=== PATIENT | female | born 1970 | race Caucasian/White ===

== ENCOUNTER 2025-06-13 19:21 | Emergency (ER) | payer MEDICAID, SELFPAY ==
[2025-06-13 19:24] VITALS: BP 159/111; PULSE 105; RESP 20; TEMP 36.6; O2SAT 97; BMI 39.7
[2025-06-13] MEDS: HYDROcodone Bitartrate/Apap 5/325 Tablet PO (19:42)
--- NOTE | 2025-06-13 19:44 | NURSING ---
Pt very upset, worried about adhd son at home. States she needs to get home to him so he does not freak out. I offered to call him, but he does not have a phone. SW in room and talking about options with pt.
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
--- NOTE | 2025-06-13 19:46 | RAD_ITS ---
PROCEDURE: FOREARM 2 VIEWS 06/13/2025 REASON FOR EXAM: INJURY TECHNIQUE: Left FOREARM 2 VIEWS COMPARISON: None FINDINGS: See below RAD/Forearm 2 Views IMPRESSION: There is a minimally displaced fracture through the distal shaft of the ulna, w ith minimal apex dorsal angulation. There is surrounding soft tissue swelling. Questionable fragmentation at the lunate may be artifactual. Consider dedicate d wrist radiographs. Reading Location: [facility]
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
--- OUTSIDE RECORDS SUMMARY | 2025-06-13 20:42 | XMS RPT_ITS | CCD ---
Author Organization [facility] Care Team Providers Care Nursing Technician Name Role Phone PHYSICIAN, NONE Primary Care Physician Unavailab norma Rao ECOMMERCE MARKETING SPECIALIST.Samantha MAHAN Primary Care Provider Maira ECOMMERCE MARKETING SPECIALIST.Samantha MAHAN Primary Care Provider BRENDON RAOE Khris Referring Unavailable MAIRA, SAMANTHA M Primary Care Unavailable MAIRA, SAMANTHA M Referring Unavailable MAIRA, SAMANTHA M Primary Care Unavailable MAIRA, SAMANTHA M Referring Unavailable MAIRA, SAMANTHA M Primary Care Unavailable MAIRA, SAMANTHA M Referring Unavailable MAIRA, SAMANTHA M Primary Care Unavailable AUDREY SANCHEZ Attending Unavailable MAIRA, SAMANTHA M Primary Care Unavailable MAIRA, SAMANTHA M Referring Unavailable MAIRA, SAMANTHA M Primary Care Unavailable AUDREY SANCHEZ Attending Unavailable MAIRA, SAMANTHA M Referring Unavailable MAIRA, SAMANTHA M Primary Care Unavailable MILY ERWIN Attending Unavailable MAIRA, SAMANTHA M Referring Unavailable MAIRA, SAMANTHA M Primary Care Unavailable SUJIT THOMASON Referring Unavailable MAIRA, SAMANTHA M Primary Care Unavailable Rajguru ECOMMERCE MARKETING SPECIALIST.Audrey MAHAN Unavailable Shree [employer]COMMERCE MARKETING SPECIALIST.Audrey MAHAN Unavailable Medications Current Medications Medication Drug Class(es) Dates Sig (Normalized) Sig (Original) atorvastatin 20 mg oral tablet (20 sources) HMG-CoA Reductase Inhibitor Start: 4 End: 4 take 1 tablet by mouth once daily at bedtime atorvastatin (LIPITOR) 20 mg tablet Indications: Mixed hyperlipidemia Take 1 tablet by mouth once daily. At bedtime 90 tablet 1 08/18/2024 Active Comment on above: Take 1 tablet by garland th once daily. At bedtime hydroCHLOROthiazide 12.5 mg / losartan potassium 50 mg oral tablet (20 sources) Thiazide Diuretic, Angiotensin 2 Receptor Laura Start: End: take 1 tablet by mouth once daily losartan-hydroCHLO ROthiazide (HYZAAR) 50-12.5 mg per tablet Indications: Essential hypertension, benign take 1 tablet by mouth once daily. 90 tablet 3 06/03/2024 Active Comment on above: Take 1 tablet by garland th once daily. naproxen 500 mg oral tablet (1 source) Nonsteroidal Anti-inflammatory Drug Start: End: naproxen 500 mg oral tablet Dose : 500 mg = 1 tab(s), Oral, BID, PRN Pain, X 10 day(s), # 20 tab(s), 0 Refill(s), 01/03/24 1:11:00 PM EST, Pharmacy: [facility] #[id number], 147.3, cm, 12/24/23 12:38:00 EST, Height, kg, 12/24/23 12:38:00 EST, Dosing Weight Start Date: 12/24/23 Stop Date: 01/03/24 Status: Ordered QUEtiapine 50 mg oral tablet (14 sources) Atypical Antipsychotic Start: End: take 1 tablet by mouth once daily at bedtime QUEtiapine (SEROQUEL) 50 mg tablet Take 1 tablet by mouth daily at bedtime. 30 tablet 1 07/11/2024 Active Start: 05-13-2024 End: 07-12-2024 take 1 tablet by mouth once daily at bedtime QUEtiapine (SEROQUEL) 25 mg tablet Take 1 tablet by mouth daily at bedtime. 30 tablet 1 05/13/2024 07/11/2024 Discontinued sertraline 100 mg oral tablet (20 sources) Serotonin Reuptake Inhibitor Start: 07-11-2024 End: 09-09-2024 take 2 tablets by mouth once daily sertraline (ZOLOFT) 100 mg tablet Take 2 tablets by mouth once daily. 60 tablet 1 07/11/2024 Active Start: 05-13-2024 End: 08-17-2024 take 1.5 tablets by mouth once daily sertraline (ZOLOFT) 100 mg tablet Take 1.5 tablets by mouth once daily. 45 tablet 1 05/13/2024 07/11/2024 Discontinued Start: 02-06-2024 End: 05-13-2024 take 1 tablet by mouth once daily sertraline (ZOLOFT) 100 mg tablet Indications: Depression, unspecified depression type , Anxiety Take 1 tablet by mouth once daily. 90 tablet 1 02/06/2024 05/13/2024 Discontinued Start: 12-25-2023 End: 02-06-2024 take 1 tablet by mouth once daily sertraline (ZOLOFT) 50 mg tablet Indications: Depression, unspecified depression type , Anxiety Take 1 tablet by mouth once daily. 30 tablet 2 12/25/2023 02/06/2024 Discontinued Comment on above: Take 1 tablet by garland th once daily. Completed/Discontinued Medications Medication Drug Class(es) Dates Sig (Normalized) Sig (Original) amoxicillin 875 mg / clavulanate 125 mg oral tablet (5 sources) Penicillin-class Antibacterial Start: 12-24-2023 End: 02-06-2024 amoxicillin-clavu lanate potassium (AUGMENTIN) 875-125 mg per tablet Start: 12-24-2023 End: 01-03-2024 take 1 tablet by mouth every twelve hours amoxicillin-clavulanate 875 mg-125 mg or al tablet 1 tab(s), Oral, q12h, X 10 day(s), # 20 tab(s), 0 Refill(s), 01/03/24 1:11:00 PM EST, Pharmacy: [facility] #30, 147.3, cm, 12/24/23 12:38:00 EST, Height, 100, kg, 12/24/23 12:38:00 EST, Dosing Weight Start Date: 12/24/23 Stop Date: 01/03/24 Status: Ordered iv contrast (will be provided with radiology test) (1 source) Start: 05-22-2024 End: 05-23-2024 inject 1 dose intravenously once iv contrast (will be provided with radiology test) Indications: Cataplexy , Dysphasia MRI Brain Inject, intravenously, once for 1 dose.No IV access, insert saline lock prior to beginning of sedation, infusion, injection of imaging exam.Discontinue saline lock post exam. If Pt. has a central line or IVAD, may access for administration according to line specific nursing protocol.Once exam is complete flush line and de-access according to line specific nursing protocol in the MR contrast administration guidelines link 1 Each 0 05/22/2024 05/23/2024 lisinopril 20 mg oral tablet (1 source) Angiotensin Converting Enzyme Inhibitor Start: 12-25-2023 End: 01-08-2024 take 1 tablet by mouth once daily lisinopril (ZESTRIL) 20 mg tablet Indications: Essential hypertension, benign Take 1 tablet by mouth once daily. 30 tablet 2 12/25/2023 01/08/2024 Discontinued Comment on above: Take 1 tablet by mouth once daily. losartan potassium 50 mg oral tablet (5 sources) Angiotensin 2 Receptor Laura Start: 01-08-2024 End: 02-07-2024 take 1 tablet by mouth twice daily losartan (COZAAR) 50 mg tablet Indications: Essential hypertension, benign Take 1 tablet by mouth two times a day. 30 tablet 2 01/08/2024 02/07/2024 Discontinued Comment on above: Take 1 tablet by mouth two times a day. Problems Active Problems Problem Classification Problem Date Documented Da te Episodic/Chronic Adjustment disorders (20 sources) Adjustment disorder with depressed mood; Translations: [Adjustment disorder with depressed mood] Onset: 01-24-2007 01-24-2007 Chronic Anxiety disorders (20 sources) Anxiety; Translations: [Anxiety disorder, unspecified] Onset: 03-22-2012 03-22-2012 Chronic Coma; stupor; and brain damage (1 source) Daytime somnolence; Translations: [Somnolence] 05-22-2024 Episodic Disorders of lipid metabolism (2 sources) Mixed hyperlipidemia; Translations: [Mixed hyperlipidemia] 02-07-2024 Chronic Essential hypertension (20 sources) Benign essential hypertension; Translations: [Essential (primary) hypertension] Onset: 04-09-2012 01-08-2024 Chronic Mood disorders (20 sources) Depressive disorder; Translations: [Depression] Onset: 12-25-2023 12-25-2023 Chronic Mood disorders (1 source) Mood disorders; Translations: [Depression, unspecified depression type] Onset: 12-25-2023 Other connective tissue disease (1 source) Muscle weakness; Translations: [Muscle weakness (generalized)] 05-22-2024 Episodic Other nervous system disorders (20 sources) Carpal tunnel syndrome of right wrist; Translations: [Carpal tunnel syndrome, right upper limb] Onset: 03-07-2024 03-07-2024 Chronic Other nervous system disorders (2 sources) Cataplexy; Translations: [Narcolepsy with cataplexy] 05-22-2024 Chronic Other nervous system disorders (2 sources) Dysphasia; Translations: [Dysphasia] 05-22-2024 Episodic Other screening for suspected conditions (not mental disorders or infectious disease) (14 sources) Patient encounter status; Translations: [Encounter for screening mammogram for malignant neoplasm of breast] Onset: 01-24-2024 03-06-2024 Episodic Otitis media and related conditions (1 source) Otitis media; Translations: [Otitis media, unspecified, right ear] Onset: 12-24-2023 Episodic Residual codes; unclassified (2 sources) Nicotine user; Translations: [Tobacco use] 05-13-2024 Episodic Substance-related disorders (2 sources) Marijuana user; Translations: [Cannabis use, unspecified, uncomplicated] 05-13-2024 Episodic Unclassified (2 sources) APPOINTMENT CANCELLED 03-11-2024 Past or Other Problems Problem Classification Problem Date Documented Da te Episodic/Chronic Cancer of cervix (16 sources) Atypical squamous cells of undetermined significance on cervical Papanicolaou smear; Translations: [Atypical squamous cells of undetermined significance on cytologic smear of cervix (ASC-US)] Onset: 04-17-2024 04-17-2024 Episodic Cardiac dysrhythmias (2 sources) Palpitations; Translations: [Palpitations] Onset: 02-25-2024 02-25-2024 Episodic Other connective tissue disease (20 sources) Pain in right hand; Translations: [Pain in right hand] Onset: 03-07-2024 03-04-2024 Episodic Other connective tissue disease (20 sources) Ganglion cyst of the right volar wrist; Translations: [Ganglion, right wrist] Onset: 03-07-2024 03-07-2024 Episodic Other connective tissue disease (1 source) Pain in right hand; Translations: [Right hand pain] Onset: 03-06-2024 Episodic Superficial injury; contusion (20 sources) Contusion of upper limb; Translations: [Contusion of unspecified upper arm, initial encounter] Onset: 10-22-2015 10-22-2015 Episodic Unclassified (1 source) Patient encounter status 04-24-2025 Results Test Name Value Interpretation Reference Range Keri Penaloza 10-06-2024 [place] Telephone (AGINTMLW) ZOFIA RAGLAND ([id number]) 1970 F Date Time Provider Department 10/06/24 SAMANTHA RAO AGINTMLW During your visit today, we recorded the following information about you: Samantha Rao, ECOMMERCE MARKETING SPECIALIST.VENDING MACHINE COLLECTOR 10/06/2024 6:59 AM Signed Please let pt know we received her disability paperwork. She will need to go to [facility] for disability evaluation for one portion of this and the other is psychological which will have to be completed by her psych r. Please forward these papers. Please give her number to [facility]. Mariella Sommers LPN 10/08/2024 4:43 PM Signed Call placed to pt, advised of the information in this note. Pt verbalized an understanding. JEFERSON Lee Brenda, LPN 10/09/2024 9:30 AM Signed Disability paperwork faxed to [facility] at [phone] and to Audrey Silva (psych) at [phone]. Fax confirmation received for both faxes. Mariella Sommers LPN Allergies As of Date: 10/06/2024 (No Known Allergies) Date Reviewed: 07/11/2024 Reviewed by: Carisa Wells MA - Fully Assessed Primary Visit Diagnosis:Disability examination [Z02.71] Order(s):CONSULT TO PHYSICAL THERAPY [9032] Order #: [id number]: 1 FUTURE Prescriptions as of 10/09/2024 - atorvastatin (LIPITOR) 20 mg tablet Take 1 tablet by mouth once daily. At bedtime - QUEtiapine (SEROQUEL) 50 mg tablet Take 1 tablet by mouth daily at bedtime. - sertraline (ZOLOFT) 100 mg tablet Take 2 tablets by mouth once daily. - losartan-hydroCHLOROt hiazide (HYZAAR) 50-12.5 mg per tablet take 1 tablet by mouth once daily. Problem List As Of Date 10/06/2024 Noted Resolved ADJUSTMENT DISORDER WITH DEPRESSED MOOD [F43.21]01/24/2007 Anxiety [F41.9] 03/22/2012 Essential hypertension, benign [I10] 04/09/2012 Arm contusion [S40.029A] 10/22/2015 Foreign body in forearm [S50.859A] 11/02/2015 Depression [F32.A] 12/25/2023 Right hand pain [M79.641] 03/07/2024 Ganglion cyst of volar aspect of right wrist [M*03/07/2024 Right carpal tunnel syndrome [G56.01] 03/07/2024 Atypical squamous cells of undetermined signifi*04/17/2024 Encounter Status:Closed by MARIELLA SOMMERS on 10/08/24 Normal [facility] CNCOon 09-24-2024 CNCO Letter Text Normal [facility] CNPNon 09-24-2024 CNPN Telephone (AGPSYACC) ZOFIA RAGLAND ([id number]) 1970 F Date Time Provider Department 09/24/24 TASNEEM MCHUGH During your visit today, we recorded the following information about you: Jane Livingston 09/24/2024 11:33 AM Signed No Shows: 03/19/24 at 10:30 am 05/28/24 at 10:30 am 07/30/24 at 9:30 am 09/24/24 at 10:30 am No Show Documentation Zofia Ragland no showed for an appointment on 09/24/24 with Tasneem Mchugh PSYD at 10:30 am. She was scheduled for follow up appointment. I called and did not speak with the patient regarding her missed appointment, but left voicemail. Zofia stated the reason that she missed her appointment was because N/A . Resources discussed/offered to patient: N/A No show determined to be fault of patient: Yes This is the patients fourth no show in the last 12 months. Patient was rescheduled for N/A. Letter mailed : Yes Is this the Third or Fourth No Show? Yes. Was the property claims manager/coordinator contacted? Yes Jane Livingston September 24, 2024 11:26 AM Allergies As of Date: 09/24/2024 (No Known Allergies) Date Reviewed: 07/11/2024 Reviewed by: Carisa Wells MA - Fully Assessed Reason for Visit: Appointment [186] Cmt: #4 No Show Prescriptions as of 09/24/2024 - atorvastatin (LIPITOR) 20 mg tablet Take 1 tablet by mouth once daily. At bedtime - QUEtiapine (SEROQUEL) 50 mg tablet Take 1 tablet by mouth daily at bedtime. - sertraline (ZOLOFT) 100 mg tablet Take 2 tablets by mouth once daily. - losartan-hydroCHLOROt hiazide (HYZAAR) 50-12.5 mg per tablet take 1 tablet by mouth once daily. Problem List As Of Date 09/24/2024 Noted Resolved ADJUSTMENT DISORDER WITH DEPRESSED MOOD [F43.21]01/24/2007 Anxiety [F41.9] 03/22/2012 Essential hypertension, benign [I10] 04/09/2012 Arm contusion [S40.029A] 10/22/2015 Foreign body in forearm [S50.859A] 11/02/2015 Depression [F32.A] 12/25/2023 Right hand pain [M79.641] 03/07/2024 Ganglion cyst of volar aspect of right wrist [M*03/07/2024 Right carpal tunnel syndrome [G56.01] 03/07/2024 Atypical squamous cells of undetermined signifi*04/17/2024 Encounter Status:Closed by JANE LIVINGSTON on 09/24/24 [facility] 09-10-2024 CNPN Telephone (AGPSYACC) ZOFIA RAGLAND ([id number]) 1970 F Date Time Provider Department 09/10/24 TASNEEM MCHUGH AGPSYACC During your visit today, we recorded the following information about you: Lio Jane 09/10/2024 8:55 AM Signed Appointment at 1:30 pm today and did she want to schedule Jane Livingston September 10, 2024 8:54 AM Allergies As of Date: 09/10/2024 (No Known Allergies) Date Reviewed: 07/11/2024 Reviewed by: Carisa Wells MA - Fully Assessed Reason for Visit: Appointment [186] Cmt: Appointment available at 1:30 pm today and did she want to schedule Prescriptions as of 09/10/2024 - atorvastatin (LIPITOR) 20 mg tablet Take 1 tablet by mouth once daily. At bedtime - QUEtiapine (SEROQUEL) 50 mg tablet Take 1 tablet by mouth daily at bedtime. - sertraline (ZOLOFT) 100 mg tablet Take 2 tablets by mouth once daily. - losartan-hydroCHLOROt hiazide (HYZAAR) 50-12.5 mg per tablet take 1 tablet by mouth once daily. Problem List As Of Date 09/10/2024 Noted Resolved ADJUSTMENT DISORDER WITH DEPRESSED MOOD [F43.21]01/24/2007 Anxiety [F41.9] 03/22/2012 Essential hypertension, benign [I10] 04/09/2012 Arm contusion [S40.029A] 10/22/2015 Foreign body in forearm [S50.859A] 11/02/2015 Depression [F32.A] 12/25/2023 Right hand pain [M79.641] 03/07/2024 Ganglion cyst of volar aspect of right wrist [M*03/07/2024 Right carpal tunnel syndrome [G56.01] 03/07/2024 Atypical squamous cells of undetermined signifi*04/17/2024 Encounter Status:Closed by JANE LIVINGSTON on 09/10/24 [facility] CNOVon 09-09-2024 CNOV Office Visit (PSWSTR ) ZOFIA RAGLAND ([id number]) 1970 F Date Time Provider Department 09/09/24 8:00 AM AUDREY SANCHEZ PSWSTR During your visit today, we recorded the following information about you: Audrey Sanchez, ECOMMERCE MARKETING SPECIALIST.VENDING MACHINE COLLECTOR 09/09/2024 9:48 AM Signed Patient was not able to attend the appointment this morning as she had to go to urgent care due to chest pain. Referring Provider: AUDREY SANCHEZ [[id number]] Allergies As of Date: 09/09/2024 (No Known Allergies) Date Reviewed: 07/11/2024 Reviewed by: Carisa Wells MA - Fully Assessed Reason for Visit: Appointment Cancelled [1023] Primary Visit Diagnosis:APPOINTMENT CANCELLED Prescriptions as of 09/09/2024 - atorvastatin (LIPITOR) 20 mg tablet Take 1 tablet by mouth once daily. At bedtime - QUEtiapine (SEROQUEL) 50 mg tablet Take 1 tablet by mouth daily at bedtime. - sertraline (ZOLOFT) 100 mg tablet Take 2 tablets by mouth once daily. - losartan-hydroCHLOROt hiazide (HYZAAR) 50-12.5 mg per tablet take 1 tablet by mouth once daily. Problem List As Of Date 09/09/2024 Noted Resolved ADJUSTMENT DISORDER WITH DEPRESSED MOOD [F43.21]01/24/2007 Anxiety [F41.9] 03/22/2012 Essential hypertension, benign [I10] 04/09/2012 Arm contusion [S40.029A] 10/22/2015 Foreign body in forearm [S50.859A] 11/02/2015 Depression [F32.A] 12/25/2023 Right hand pain [M79.641] 03/07/2024 Ganglion cyst of volar aspect of right wrist [M*03/07/2024 Right carpal tunnel syndrome [G56.01] 03/07/2024 Atypical squamous cells of undetermined signifi*04/17/2024 Encounter Status:Closed by AUDREY SANCHEZ on 09/09/24 [facility] CNPLaura 08-20-2024 CNPN Telephone (AGPSYACC) ZOFIA RAGLAND ([id number]) 1970 Date Time Provider Department 08/20/24 TASNEEM MCHUGH AGPSYACC During your visit today, we recorded the following information about you: Jane Livingston 08/20/2024 1:27 PM Signed Called to schedule follow up appointmentlisette August 20, 2024 1:27 PM Allergies As of Date: 08/20/2024 (No Known Allergies) Date Reviewed: 07/11/2024 Reviewed by: Carisa Wells MA - Fully Assessed Reason for Visit: Appointment [186] Cmt: Called to schedule follow up appointment, lisette Prescriptions as of 08/20/2024 - atorvastatin (LIPITOR) 20 mg tablet Take 1 tablet by mouth once daily. At bedtime - QUEtiapine (SEROQUEL) 50 mg tablet Take 1 tablet by mouth daily at bedtime. - sertraline (ZOLOFT) 100 mg tablet Take 2 tablets by mouth once daily. - losartan-hydroCHLOROt hiazide (HYZAAR) 50-12.5 mg per tablet take 1 tablet by mouth once daily. Problem List As Of Date 08/20/2024 Noted Resolved ADJUSTMENT DISORDER WITH DEPRESSED MOOD [F43.21]01/24/2007 Anxiety [F41.9] 03/22/2012 Essential hypertension, benign [I10] 04/09/2012 Arm contusion [S40.029A] 10/22/2015 Foreign body in forearm [S50.859A] 11/02/2015 Depression [F32.A] 12/25/2023 Right hand pain [M79.641] 03/07/2024 Ganglion cyst of volar aspect of right wrist [M*03/07/2024 Right carpal tunnel syndrome [G56.01] 03/07/2024 Atypical squamous cells of undetermined signifi*04/17/2024 Encounter Status:Closed by JANE LIVINGSTON on 08/20/24 [facility] 08-05-2024 ASHLEY Telephone (BRADEN) ZOFIA RAGLAND ([id number]) 1970 F Date Time Provider Department 08/05/24 SAMANTHA RAO During your visit today, we recorded the following information about you: Poppy Caballero 08/05/2024 4:20 PM Signed Denial Type: Payer Clinical Guidelines Not Met Denial Rationale: Based on what was given, you have a problem, your doctor's request cannot be approved. A person might need a(n) Brain MRI (with or without Internal Auditory Canal views) if these notes have/has been given: doctor's notes that say why this test is needed. The doctor's notes should say how this test will change your treatment. The information we got did not include these notes. Is Peer to Peer Available? YES Peer to Peer Deadline: Must be completed by: 08/07/2024 Insurance Case# [id number] Peer to Peer opt 2 (enter tracking#) / opt 1 Note: peer to peer can not be scheduled. Denial sent to providers email. Samantha Rao APRN.VENDING MACHINE COLLECTOR 08/06/2024 4:50 PM Signed Pt to be notified of deny. Pt had normal neuro and PE exam. I would recommend she follow up with sleep medicine as referred and would recommend she see neurology for further evaluation of her symptoms. They can order testing if they feel is necessary. Gay He MA 08/08/2024 11:53 AM Addendum Patient informed and states that she cannot drive to [place] for the sleep medicine specialist because she cannot drive long distances and she does not have anyone to drive her. States her medications are not working and they will not let her schedule with Dr. Mchugh here at our office, is very upset stating it is our front office staffs fault because they told her she missed appointments and did not have appointments when she knew she did. States they refused to schedule her. Patient is very upset and said nobody can help her and hung up. Please advise. CONNIE Crews Charlene M, APRN.VENDING MACHINE COLLECTOR 08/10/2024 10:18 PM Signed Unfortunately due to her symptoms she needs to see specialists. Which includes neurologist and sleep medicine. I believe her insurance should provide transportation for her to doctor appts. This way she can schedule these. Mariella Sommers LPN 08/20/2024 3:09 PM Signed Left message for pt to call office. Mariella Sommers LPN Allergies As of Date: 08/05/2024 (No Known Allergies) Date Reviewed: 07/11/2024 Reviewed by: Carisa Wells MA - Fully Assessed Reason for Visit: Denial: 80410 MRI BRAIN WO/W IVCON [Other] Primary Visit Diagnosis:Cataplexy [G47.411] Other Visit Diagnosis:Dysphasia [R47.02] Order(s):CONSULT TO NEUROLOGY [9019] Order #: [id number]: 1 FUTURE Prescriptions as of 08/20/2024 - atorvastatin (LIPITOR) 20 mg tablet Take 1 tablet by mouth once daily. At bedtime - QUEtiapine (SEROQUEL) 50 mg tablet Take 1 tablet by mouth daily at bedtime. - sertraline (ZOLOFT) 100 mg tablet Take 2 tablets by mouth once daily. - losartan-hydroCHLOROt hiazide (HYZAAR) 50-12.5 mg per tablet take 1 tablet by mouth once daily. Problem List As Of Date 08/05/2024 Noted Resolved ADJUSTMENT DISORDER WITH DEPRESSED MOOD [F43.21]01/24/2007 Anxiety [F41.9] 03/22/2012 Essential hypertension, benign [I10] 04/09/2012 Arm contusion [S40.029A] 10/22/2015 Foreign body in forearm [S50.859A] 11/02/2015 Depression [F32.A] 12/25/2023 Right hand pain [M79.641] 03/07/2024 Ganglion cyst of volar aspect of right wrist [M*03/07/2024 Right carpal tunnel syndrome [G56.01] 03/07/2024 Atypical squamous cells of undetermined signifi*04/17/2024 Encounter Status:Closed by MARIELLA SOMMERS on 08/20/24 [facility] CNCOon 07-30-2024 CNCO Letter Text [facility] CNPNon 07-30-2024 CNPN Telephone (AGPSYACC) ZOFIA RAGLAND ([id number]) 1970 F Date Time Provider Department 07/30/24 TASNEEM MCHUGH AGPSYACC During your visit today, we recorded the following information about you: Tejas Theo 07/30/2024 3:14 PM Signed Called patient regarding her frequent no shows and explained the [facility] No Show policy. Patient said she did not miss all of them. She said some of them she called to cancel. I did explain that we have to be called at least 24 hours if at all possible in the future before cancelling or missing an appointment. I told Zofia to try to set up MyChart on her phone and that it could help her remember her appointments. Zofia said she has had trouble with her phone. I also gave her the main phone number to reach Dr. Mchugh's medical unit secretary to schedule or confirm her appointments. [phone]. Allergies As of Date: 07/30/2024 (No Known Allergies) Date Reviewed: 07/11/2024 Reviewed by: Carisa Wells MA - Fully Assessed Reason for Visit: Appointment [186] Prescriptions as of 07/30/2024 - QUEtiapine (SEROQUEL) 50 mg tablet Take 1 tablet by mouth daily at bedtime. - sertraline (ZOLOFT) 100 mg tablet Take 2 tablets by mouth once daily. - losartan-hydroCHLOROt hiazide (HYZAAR) 50-12.5 mg per tablet take 1 tablet by mouth once daily. - atorvastatin (LIPITOR) 20 mg tablet Take 1 tablet by mouth once daily. At bedtime Problem List As Of Date 07/30/2024 Noted Resolved ADJUSTMENT DISORDER WITH DEPRESSED MOOD [F43.21]01/24/2007 Anxiety [F41.9] 03/22/2012 Essential hypertension, benign [I10] 04/09/2012 Arm contusion [S40.029A] 10/22/2015 Foreign body in forearm [S50.859A] 11/02/2015 Depression [F32.A] 12/25/2023 Right hand pain [M79.641] 03/07/2024 Ganglion cyst of volar aspect of right wrist [M*03/07/2024 Right carpal tunnel syndrome [G56.01] 03/07/2024 Atypical squamous cells of undetermined signifi*04/17/2024 Encounter Status:Closed by THEO LAZARO on 07/30/24 [facility] CNOVyasmin 07-11-2024 CNOV Office Visit (PSWSTR ) ZOFIA RAGLAND ([id number]) 1970 F Date Time Provider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 [facility] Address: [address] [place] [address] Performed By: #### L [id number] ####[facility] LABORATORYCLIA [id number] [place] [id number] [facility] LABCLIA [id number] [place] [address] [place]#### HPVHRT ####[facility] LABCLIA [id number] [place] [address] [place] INTERPRETATION, CYTOLOGY, DESIGN AGENT Abnormal [facility] Comment on above: Order Comment: Speci men Type: FLUID SPECIMENOrdering Facility: [facility] Address: [address] [place] [address] Result Comment: Epit helial cell abnormality. Atypical squamous cells of undetermined significance (ASC-US). Performed By: #### L [id number] ####[facility] LABORATORYCLIA [id number] [place] [address] [place] [facility] LABCLIA [id number] [place] [id number] [place]#### HPVHRT ####[facility] LABCLIA [id number] [place] [id number] [place] LMP 12/27/2023 Normal [facility] Comment on above: Order Comment: Speci men Type: FLUID SPECIMENOrdering Facility: [facility] Address: [address] [place] [address] Performed By: #### L [id number] ####CARIE LABORATORYCLIA [id number] [place] [address] [place] [facility] LABCLIA [id number] [place] [address] [place]#### HPVHRT ####[facility] LABCLIA [id number] [place] [address] [place] PAP DISCLAIMER COMMENT The Pap Smear is a screening test for cervical cancer. False negative results occur with all screening tests, emphasizing the need for rescreening at recommended intervals, and clinical correlation. Normal [facility] Comment on above: Order Comment: Speci men Type: FLUID SPECIMENOrdering Facility: [facility] Address: [address] [place] [address] Performed By: #### L [id number] ####CARIE LABORATORYCLIA [id number] [place] [address] [place] [facility] LABCLIA [id number] [place] [address] [place]#### HPVHRT ####[facility] LABCLIA [id number] [place] [id number] [place] PAP GENERAL CATEGORIZATION Epithelial Cell Abnormality Normal [facility] Comment on above: Order Comment: Speci men Type: FLUID SPECIMENOrdering Facility: [facility] Address: [address] [place], [place] [address] Performed By: #### L [id number] ####[facility] LABORATORYCLIA [id number] [place] [address] [facility] LABCLIA [id number] [place] [address] [place]#### HPVHRT ####[facility] LABCLIA [id number] [place] [address] [place] PAP HEALTH CARE MANAGER COMMENT This specimen has been analyzed by the ThinPrep Imaging System, an automated imaging and review system, which assists the laboratory in evaluating cells on ThinPrep Pap tests. Following automated imaging, selected lindsay from every slide are reviewed by a coke crusher operator. Normal [facility] Comment on above: Order Comment: Speci men Type: FLUID SPECIMENOrdering Facility: [facility] Address: [address] [place] [address] Performed By: #### L [id number] ####[facility]IE LABORATORYCLIA [id number] [address] LABCLIA [id number] [place] [address] [place]#### HPVHRT ####[facility] LABIA [id number] [place] [address] [place] TRICHOMONAS VAGINALIS NAATon 03-27-2024 T. vaginalis DNA GAYE+probe Ql (Unsp spec) Negative Normal Negative for Trichomonas vaginalis by amplification [facility] Comment on above: Order Comment: Speci men Type: SWABOrdering Facility: [facility] Address: [address] [place] [address] Performed By: #### T RVAMP, 45635-4 ####[facility] LABIA [id number] [place] [address] [place] CNOVon 03-11-2024 CNOV Office Visit (PSWSTR ) ZOFIA RAGLAND ([id number]) 1970 F Date Time Provider Department 03/11/24 11:00 AM AUDREY SANCHEZ PSWSTR During your visit today, we recorded the following information about you: Audrey Sanchez APRN.CNP 03/11/2024 6:59 PM Signed Patient request to reschedule the appointment right before the appointment time due to transportation issues. Was assisted in rescheduling. Referring Provider: SAMANTHA RAO [[id number]] Allergies As of Date: 03/11/2024 (No Known Allergies) Date Reviewed: 12/25/2023 Reviewed by: Samantha Rao APRN.VENDING MACHINE COLLECTOR - Fully Assessed Reason for Visit: Appointment Rescheduled [1024] Primary Visit Diagnosis:APPOINTMENT CANCELLED Prescriptions as of 03/11/2024 - losartan-hydroCHLOROt hiazide (HYZAAR) 50-12.5 mg per tablet Take 1 tablet by mouth once daily. - sertraline (ZOLOFT) 100 mg tablet Take 1 tablet by mouth once daily. - atorvastatin (LIPITOR) 20 mg tablet Take 1 tablet by mouth once daily. At bedtime Problem List As Of Date 03/11/2024 Noted Resolved ADJUSTMENT DISORDER WITH DEPRESSED MOOD [F43.21]01/24/2007 Anxiety [F41.9] 03/22/2012 Essential hypertension, benign [I10] 04/09/2012 Arm contusion [S40.029A] 10/22/2015 Foreign body in forearm [S50.859A] 11/02/2015 Depression [F32.A] 12/25/2023 Right hand pain [M79.641] 03/07/2024 Ganglion cyst of volar aspect of right wrist [M*03/07/2024 Right carpal tunnel syndrome [G56.01] 03/07/2024 Encounter Status:Closed by AUDREY SANCHEZ on 03/11/24 [facility] 03-07-2024 CNCO HNO ID: [id number] Author: COORDINATOR, MAMMOGRAPHY, ? Service: ? Author Type: Physician Type: Letter Filed: 03/07/2024 10:18 Note Text: March 07, 2024 PID: [id number] Zofia Ragland [address] [place] [address] Dear Ms. Ragland, We are pleased to inform you that the results of your recent breast imaging exam on 03/06/2024 are normal. Early detection of cancer is very important. We also understand recommendations regarding breast cancer screening are controversial. Please discuss with your primary care provider which strategy is best for you and whether a mammogram is right for you. Your imaging studies and report will be kept on file at [facility] as part of your permanent medical record and are available for your continuing care. Thank you for allowing us to help in meeting your health care needs. Sincerely, Dr. Perez Interpreting Radiologist (Normal over 40) Normal [facility] SCREENINGon 03-06-2024 [facility] SCREENING * * *Final Report* * * DATE OF EXAM: Mar 06 2024 12:06PM [facility]81 - [facility] SCREENING / PROCEDURE REASON: Encounter for screening mammogram for malignant neoplasm of breast * * * * Physician Interpretation * * * * RESULT: #[id number] - [facility] SCREENING BILATERAL DIGITAL SCREENING MAMMOGRAM WITH CAD: 03/06/2024 HISTORY: Priors done here 2013 /Screening Mammogram - patient reports NO breast symptoms /priors available for comparison Encounter For Screening Mammogram For Malignant Neoplasm Of Breast. RESULT: TECHNIQUE: The study was acquired using full field digital technology and interpreted from soft copy. Current study was also evaluated with a Computer Aided Detection (CAD). Comparison is made to exam dated: 03/17/2014 mammogram - [facility]. The breasts are almost entirely fatty. No significant masses, calcifications, or other findings are seen in either breast. There has been no significant interval change. IMPRESSION: NEGATIVE There is no mammographic evidence of malignancy. A 1 year screening mammogram is recommended. Bing Perez M.D. ns/penrad:03/07/2024 10:18:23 Edge Worker(s): RT Karri(R)(M), letter sent: Normal over 40 Mammogram BI-RADS: 1 Negative Multiple national specialty organizations have released breast cancer screening guidelines for women at average risk for developing breast cancer - guidelines that are based on both evidence and opinion, yet differ on when to start and how often to screen for breast cancer. With representation from Breast Imaging, Internal Medicine, Women's Health, Family Medicine, and Medical/Surgical Oncology, the [facility] has carefully reviewed the data and reached the following consensus: 1) All women should engage in shared decision-making with their providers to decide when to start and how often to screen; 2) All women should have the opportunity to start screening mammography at age 40; 3) For women ages 45-55, we recommend annual screening mammograms; 4) For women ages 55 and over, we support both the transition from an annual to a biennial interval if this aligns more with patient's values and preferences, or continuation with annual screening; 5) All women should discuss with their providers when to stop screening mammograms. Bellhop Service Captain: Dee Dee Transcribe Date/Time: Mar 06 2024 10:55A Dictated by: BING PEREZ MD This examination was interpreted and the report reviewed and electronically signed by: BING PEREZ MD on Mar 07 2024 10:18AM EST [id number] Normal [facility] XR HAND 3V PA/LAT/OBL RTon 0 03-06-2024 XR HAND 3V PA/LAT/OBL RT * * *Final Report* * * DATE OF EXAM: Mar 06 2024 11:19AM [id number] - XR HAND 3V PA/LAT/OBL RT / PROCEDURE REASON: Right hand pain * * * * Physician Interpretation * * * * EXAMINATION: XR HAND 3V PA/LAT/OBL RT CLINICAL HISTORY: Right hand pain Technique: XR HAND 3V PA/LAT/OBL RT -- RIGHT with 3 views on 3 images Comparison: None RESULT: No acute fracture or dislocation. Joint spaces are maintained. IMPRESSION: No acute osseous abnormality Bellhop Service Captain: LORIN Transcribe Date/Time: Mar 10 2024 4:00P Dictated by : KARIE RAMSEY MD This examination was interpreted and the report reviewed and electronically signed by: KARIE RAMSEY MD on Mar 10 2024 4:01PM EST [id number] N Normal [facility] CNNURSEon 02-25-2024 [facility] Nurse Visit (FAMPWS) ZOFIA RAGLAND ([id number]) 1970 F Date Time Provider Department 02/25/24 10:00 AM [facility] During your visit today, we recorded the following information about you: Karie Horn LPN 02/25/2024 9:59 AM Signed Patient presents for EKG per Samantha Rao CNP. Denies any problems at this time. Tolerated procedure well. Karie Horn LPN Referring Provider: SAMANTHA RAO [[id number]] Allergies As of Date: 02/25/2024 (No Known Allergies) Date Reviewed: 12/25/2023 Reviewed by: Samantha Rao APRN.VENDING MACHINE COLLECTOR - Fully Assessed Reason for Visit: EKG [793] Visit Diagnoses:Essential hypertension, benign [I10] Palpitations [R00.2] Order(s):ECG COMPLETE [ECG01] Order #: [id number] Prescriptions as of 02/25/2024 - losartan-hydroCHLOROt hiazide (HYZAAR) 50-12.5 mg per tablet Take 1 tablet by mouth once daily. - sertraline (ZOLOFT) 100 mg tablet Take 1 tablet by mouth once daily. - atorvastatin (LIPITOR) 20 mg tablet Take 1 tablet by mouth once daily. At bedtime Problem List As Of Date 02/25/2024 Noted Resolved ADJUSTMENT DISORDER WITH DEPRESSED MOOD [F43.21]01/24/2007 Anxiety [F41.9] 03/22/2012 Essential hypertension, benign [I10] 04/09/2012 Arm contusion [S40.029A] 10/22/2015 Foreign body in forearm [S50.859A] 11/02/2015 Depression [F32.A] 12/25/2023 Encounter Status:Closed by KARIE HORN on 02/25/24 Normal [facility] ECG COMPLETEon 02-25-2024 ECG COMPLETE Ventricular Rate : 9 1 BPM Atrial Rate : 91 BPM P-R Interval : 114 ms QRS Duration : 82 ms Q-T Interval : 370 ms QTC Calculation(Bazett) : 455 ms Calculated P Kanona : 49 degrees Calculated R Kanona : 80 degrees Calculated T Kanona : 4 degrees SINUS RHYTHM WITH OCCASIONAL PREMATURE VENTRICULAR COMPLEXES OTHERWISE NORMAL ECG Confirmed by OLIMPIA EASTON D.O. ([id number]) on 02/29/2024 9:49:22 AM NAME : ZOFIA RAGLAND PID : [id number] : 1970 Gender : Female Race : ORD : [id number] Procedure Date : Feb 25 2024 10:09:20 Edit Date : Feb 29 2024 09:49:25 Diagnosis: SINUS RHYTHM WITH OCCASIONAL PREMATURE VENTRICULAR COMPLEXES OTHERWISE NORMAL ECG Confirmed by OLIMPIA EASTON D.O. ([id number]) on 02/29/2024 9:49:22 AM Test Reason : Location : 185 : [facility] Overread By : OLIMPIA EASTON D.O. Edited By : OLIMPIA EASTON D.O. Referred By : SAMANTHA RAO Acquired by : KARIE HORN Normal [facility] CBC panel Auto (Bld)on Erythrocyte distribution width (RBC) [Ratio] 14.3 % Normal 11.5-15.0 [facility] Comment on above: Order Comment: Speci men Type: BLOOD SPECIMENOrdering Facility: [facility] Address: [address] [place] [address] Performed By: #### 5 8410-2 ####[facility] LABIA [id number] [place] [address] [place] Hematocrit (Bld) [Volume fraction] 47.2 % High 36.0-46.0 [facility] Comment on above: Order Comment: Speci men Type: BLOOD SPECIMENOrdering Facility: [facility] Address: [address] [place] [address] Performed By: #### 5 8410-2 ####[facility] LABIA [id number] [place] [address] [place] Hemoglobin (Bld) [Mass/Vol] 14.3 g/dL Normal 11.5-15.5 [facility] Comment on above: Order Comment: Speci men Type: BLOOD SPECIMENOrdering Facility: [facility] Address: [address] [place] [address] Performed By: #### 5 8410-2 ####[facility] LABIA [id number] [place] [address] [place] MCH (RBC) [Entitic mass] 26.0 pg Normal 26.0-34.0 [facility] Comment on above: Order Comment: Speci men Type: BLOOD SPECIMENOrdering Facility: [facility] Address: [address] [place] [address] Performed By: #### 5 8410-2 ####[facility] LABIA [id number] [address] [place] MCHC (RBC) [Mass/Vol] 30.3 g/dL Low 30.5-36.0 [facility] Comment on above: Order Comment: Speci men Type: BLOOD SPECIMENOrdering Facility: [facility] Address: [address] [place] [address] Performed By: #### 5 8410-2 ####[facility] LABIA [id number] [place] [address] [place] MCV (RBC) [Entitic vol] 86.0 fL Normal 80.0-100.0 [facility] Comment on above: Order Comment: Speci men Type: BLOOD SPECIMENOrdering Facility: [facility] Address: [address] [place] [address] Performed By: #### 5 8410-2 ####[facility] LABIA [id number] [place] [address] [place] Nucleated RBC (Bld) [#/Vol] 10*3/uL Normal <0.01 [facility] Comment on above: Order Comment: Speci men Type: BLOOD SPECIMENOrdering Facility: [facility] Address: [address] [place] [address] Performed By: #### 5 8410-2 ####[facility] LABIA [id number] [place] [address] [place] Platelet mean volume (Bld) [Entitic vol] 11.4 fL Normal 9.0-12.7 [facility] Comment on above: Order Comment: Speci men Type: BLOOD SPECIMENOrdering Facility: [facility] Address: [address] [place] [address] Performed By: #### 5 8410-2 ####[facility] LABIA [id number] [place] [address] [place] Platelets (Bld) [#/Vol] 417 10*3/uL High 150-400 [facility] Comment on above: Order Comment: Speci men Type: BLOOD SPECIMENOrdering Facility: [facility] Address: [address] [place] [address] Performed By: #### 5 8410-2 ####[facility] LABIA [id number] [place] [address] [place] RBC (Bld) [#/Vol] 5.49 10*6/uL High 3.90-5.20 [facility] Comment on above: Order Comment: Speci men Type: BLOOD SPECIMENOrdering Facility: [facility] Address: [address] [place] [address] Performed By: #### 5 8410-2 ####[facility] LABCLIA [id number] [place] [address] [place] WBC (Bld) [#/Vol] 10.43 10*3/uL Normal 3.70-11.00 [facility] Comment on above: Order Comment: Speci men Type: BLOOD SPECIMENOrdering Facility: [facility] Address: [address] [place] [address] Performed By: #### 5 8410-2 ####[facility] LABCLIA [id number] [address] [address] [place] Comprehensive metabolic 2000 panelon 01-24-2024 Albumin [Mass/Vol] 4.3 g/dL Normal 3.9-4.9 [facility] Comment on above: Order Comment: Speci men Type: BLOOD SPECIMENOrdering Facility: [facility] Address: [address] [place] [address] Performed By: #### 3 016-3, 61428-5, 96604-9 ####[facility] LABCLIA [id number] [place] [address] [place] ALP [Catalytic activity/Vol] 113 U/L Normal 34-123 [facility] Comment on above: Order Comment: Speci men Type: BLOOD SPECIMENOrdering Facility: [facility] Address: [address] [place] [address] Performed By: #### 3 016-3, 05064-1, 79861-7 ####[facility] LABCLIA [id number] [place] [address] [place] ALT [Catalytic activity/Vol] 19 U/L Normal 7-38 [facility] Comment on above: Order Comment: Speci men Type: BLOOD SPECIMENOrdering Facility: [facility] Address: [address] [place] [address] Performed By: #### 3 016-3, 74395-0, 11239-9 ####[facility] LABCLIA [id number] [address] [address] [place] Anion gap [Moles/Vol] 14 mmol/L Normal 9-18 [facility] Comment on above: Order Comment: Speci men Type: BLOOD SPECIMENOrdering Facility: [facility] Address: [address] [place] [address] Performed By: #### 3 016-3, 90861-9, 90499-0 ####[facility] LABCLIA [id number] [place] [id number] [place] AST [Catalytic activity/Vol] 17 U/L Normal 13-35 [facility] Comment on above: Order Comment: Speci men Type: BLOOD SPECIMENOrdering Facility: [facility] Address: [address] [place] [address] Performed By: #### 3 016-3, 47901-7, 73250-0 ####[facility] LABCLIA [id number] [place] [address] [place] Bilirubin [Mass/Vol] 0.3 mg/dL Normal 0.2-1.3 [facility] Comment on above: Order Comment: Speci men Type: BLOOD SPECIMENOrdering Facility: [facility] Address: [address] [place] [address] Performed By: #### 3 016-3, 85070-5, 43146-7 ####[facility] LABCLIA [id number] [place] [address] [place] Calcium [Mass/Vol] 9.6 mg/dL Normal 8.5-10.2 [facility] Comment on above: Order Comment: Speci men Type: BLOOD SPECIMENOrdering Facility: [facility] Address: [address] [place] [address] Performed By: #### 3 016-3, 58454-9, 25808-6 ####[facility] LABCLIA [id number] [place] [address] [place] Chloride [Moles/Vol] 103 mmol/L Normal 97-105 [facility] Comment on above: Order Comment: Speci men Type: BLOOD SPECIMENOrdering Facility: [facility] Address: [address] [place] [address] Performed By: #### 3 016-3, 02268-8, 43938-7 ####[facility] LABCLIA [id number] [place] [id number] [place] CO2 [Moles/Vol] 25 mmol/L Normal 22-30 [facility] Comment on above: Order Comment: Bronwyn acosta Type: BLOOD SPECIMENOrdering Facility: [facility] Address: [address] [place] [address] Performed By: #### 3 016-3, 91677-7, 56556-0 ####[facility] LABCLIA [id number] [place] [address] [place] Creatinine [Mass/Vol] 0.62 mg/dL Normal 0.58-0.96 [facility] Comment on above: Order Comment: Jeffi men Type: BLOOD SPECIMENOrdering Facility: [facility] Address: [address] [place] [address] Performed By: #### 3 016-3, 91277-3, ####[facility] LABCLIA [id number] [place] [address] [place] [facility] Creatinine and Glomerular filtration rate.predicted panel (S/P/Bld) 107 mL/min/1.73m??? Normal >=60 [facility] Comment on above: Order Comment: Bronwyn acosta Type: BLOOD SPECIMENOrdering Facility: [facility] Address: [address] [place] [address] Result Comment: Nuris mated Glomerular Filtration Rate (eGFR) is calculated using the 2020 CKD-EPI creatinine equation. This equation utilizes serum creatinine, sex, and age as parameters. The creatinine assay has traceable calibration to isotope dilution-mass spectrometry. Refer to KDIGO guidelines for clinical interpretation. In patients with unstable renal function, e.g. those with acute kidney injury, the eGFR may not accurately reflect actual GFR. Performed By: #### 3 016-3, 63803-6, ####[facility] LABCLIA [id number] [place] [address] [place] Glucose [Mass/Vol] 85 mg/dL Normal 74-99 [facility] Comment on above: Order Comment: Jeffi men Type: BLOOD SPECIMENOrdering Facility: [facility] Address: [address] [place] [address] Result Comment: The [place] [employer] (ADA) provides guidance for cutoff values for fasting glucose and random glucose. The ADA defines fasting as no caloric intake for at least 8 hours. Fasting plasma glucose results between 100 to 125 mg/dL indicate increased risk for diabetes (prediabetes). Fasting plasma glucose results greater than or equal to 126 mg/dL meet the criteria for diagnosis of diabetes. In the absence of unequivocal hyperglycemia, results should be confirmed by repeat testing. In a patient with classic symptoms of hyperglycemia or hyperglycemic crisis, random plasma glucose results greater than or equal to 200 mg/dL meet the criteria for diagnosis of diabetes. Reference: Standards of Medical Care in Diabetes 2016, [place] [employer]. Diabetes Care. 2016.39(Suppl 1). Performed By: #### 3 016-3, 88669-0, 25764-9 ####[facility] LABCLIA [id number] [place] [address] [place] Potassium [Moles/Vol] 4.3 mmol/L Normal 3.7-5.1 [facility] Comment on above: Order Comment: Speci men Type: BLOOD SPECIMENOrdering Facility: [facility] Address: [address] [place] [address] Performed By: #### 3 016-3, 76751-5, 88174-2 ####[facility] LABCLIA [id number] [place] [address] [place] Protein [Mass/Vol] 7.2 g/dL Normal 6.3-8.0 [facility] Comment on above: Order Comment: Speci men Type: BLOOD SPECIMENOrdering Facility: [facility] Address: [address] [place] [address] Performed By: #### 3 016-3, 30915-3, 12740-0 ####[facility] LABCLIA [id number] [place] [id number] [place] Sodium [Moles/Vol] 142 mmol/L Normal 136-144 [facility] Comment on above: Order Comment: Speci men Type: BLOOD SPECIMENOrdering Facility: [facility] Address: [address] [place] [address] Performed By: #### 3 016-3, 40323-9, 09315-2 ####[facility] LABCLIA [id number] [place] [address] [place] Urea nitrogen [Mass/Vol] 20 mg/dL Normal 7-21 [facility] Comment on above: Order Comment: Speci men Type: BLOOD SPECIMENOrdering Facility: [facility] Address: [address] [place] [address] Performed By: #### 3 016-3, 85612-1, ####[facility] LABCLIA [id number] [place] [address] [place] Lipid 1996 panelon 4 Cholesterol [Mass/Vol] 217 mg/dL High <200 [facility] Comment on above: Order Comment: Speci men Type: BLOOD SPECIMENOrdering Facility: [facility] Address: [address] [place] [address] Result Comment: <200 mg/dL, Desirable 200-239 mg/dL, Borderline high >239 mg/dL, High Performed By: #### 3 016-3, , 99725-6 ####[facility] LABCLIA [id number] [place] [address] [place] Cholesterol in HDL [Mass/Vol] 54 mg/dL Normal >39 [facility] Comment on above: Order Comment: Speci men Type: BLOOD SPECIMENOrdering Facility: [facility] Address: [address] [place] [address] Result Comment: 40-5 9 mg/dL, Acceptable >59 mg/dL, High: Negative risk factor for coronary heart disease <40 mg/dL, Low: Positive risk factor for coronary heart disease Performed By: #### 3 016-3, 80745-7, 27654-7 ####[facility] LABCLIA [id number] [place] [address] [place] Cholesterol in LDL [Mass/Vol] 151 mg/dL High <100 [facility] Comment on above: Order Comment: Speci men Type: BLOOD SPECIMENOrdering Facility: [facility] Address: [address] [place] [address] Result Comment: <100 mg/dL, Optimal 100-129 mg/dL, Near optimal/above optimal 130-159 mg/dL, Borderline high 160-189 mg/dL, High >189 mg/dL, Very high Secondary prevention optimal LDL Cholesterol levels are recommended to be < 70 mg/dL Performed By: #### 3 016-3, 23575-2, 51944-9 ####[facility] LABCLIA [id number] [address] STATES OF [facility] Cholesterol in LDL/Cholesterol in HDL [Mass ratio] 2.80 {ratio} High <2.54 [facility] Comment on above: Order Comment: Speci men Type: BLOOD SPECIMENOrdering Facility: [facility] Address: [address] [place] [address] Result Comment: Refe rence: 1. National Cholesterol Education Program ATP III Guideline At-A-Glance Quick Desk Reference: National Heart, Lung, and Blood [place]. National Institutes of Health. 2001: NIH Publication No. 01-3305. 2. An International Atherosclerosis Society position paper: global recommendations for the management of dyslipidemia: executive summary, Atherosclerosis. 2014: 232(2):410-413. Performed By: #### 3 016-3, 21864-7, 23767-3 ####[facility] LABCLIA [id number] [address] [place] Cholesterol in VLDL [Mass/Vol] 12 mg/dL Normal <30 [facility] Comment on above: Order Comment: Speci men Type: BLOOD SPECIMENOrdering Facility: [facility] Address: [address] [place] [address] Performed By: #### 3 016-3, 11333-0, 34668-5 ####[facility] LABCLIA [id number] [place] [address] [place] Cholesterol non HDL [Mass/Vol] 163 mg/dL High <130 [facility] Comment on above: Order Comment: Speci men Type: BLOOD SPECIMENOrdering Facility: [facility] Address: [facility] [place] [address] Result Comment: <130 mg/dL, Optimal 130-159 mg/dL, Near optimal/above optimal 160-189 mg/dL, Borderline high 190-219 mg/dL, High >219 mg/dL, Very high Secondary prevention optimal non HDL Cholesterol levels are recommended to be <100 mg/dL Performed By: #### 3 016-3, 90429-1, 36821-0 ####[facility] LABCLIA [id number] [place] [address] [place] Cholesterol.total/C holesterol in HDL [Mass ratio] 4.02 {ratio} Normal <5.10 [facility] Comment on above: Order Comment: Speci men Type: BLOOD SPECIMENOrdering Facility: [facility] Address: [address] [place] [address] Performed By: #### 3 016-3, 81263-5, 66469-8 ####[facility] LABCLIA [id number] [place] [address] [place] FASTING TIME 18 hrs Normal [facility] Comment on above: Order Comment: Speci men Type: BLOOD SPECIMENOrdering Facility: [facility] Address: [address] [place] [address] Performed By: #### 3 016-3, 29858-6, 38170-7 ####[facility] LABCLIA [id number] [place] [address] [place] Triglyceride [Mass/Vol] 60 mg/dL Normal <150 [facility] Comment on above: Order Comment: Speci men Type: BLOOD SPECIMENOrdering Facility: [facility] Address: [address] [place] [address] Result Comment: <150 mg/dL, Normal 150-199 mg/dL, Borderline high 200-499 mg/dL, High >499 mg/dL, Very high Performed By: #### 3 016-3, 97258-2, 87768-7 ####[facility] LABCLIA [id number] [place] [address] [place] TSH SerPl-aCncon 01-24-2024 TSH Qn 2.080 m[IU]/L Normal 0.270-4.200 [facility] Comment on above: Order Comment: Speci men Type: BLOOD SPECIMENOrdering Facility: [facility] Address: [address] [place] [address] Performed By: #### 3 016-3, 44657-2, 03717-4 ####[facility] LABCLIA [id number] [address] [place] Vital Signs Date Time Vital Sign Value Performing Clinician Renita apnote 07-11-2024 07:57-0400 Body mass index (BMI) [Ratio] 42.5 kg/m2 Audrey Sanchez APRN.VENDING MACHINE COLLECTOR Work Phone: [facility] 07-11-2024 07:57-0400 Body weight 94.35 kg Audrey Sanchez APRN.VENDING MACHINE COLLECTOR Work Phone: [facility] 07-11-2024 07:57-0400 Diastolic blood pressure 84 mm[Hg] Audrey Sanchez [employer] MARKETING SPECIALIST.VENDING MACHINE COLLECTOR Work Phone: [facility] 07-11-2024 07:57-0400 Heart rate 78 /min Audrey Sanchez [employer] MARKETING SPECIALIST.VENDING MACHINE COLLECTOR Work Phone: [facility] 07-11-2024 07:57-0400 Respiratory rate 14 /min Audrey Sanchez APRN.VENDING MACHINE COLLECTOR Work Phone: [facility] 07-11-2024 07:57-0400 Systolic blood pressure 136 mm[Hg] Audrey Sanchez APRN.VENDING MACHINE COLLECTOR Work Phone: [facility] 05-22-2024 14:06-0400 Body height 149 cm Samantha Maira [employer] MARKETING SPECIALIST.VENDING MACHINE COLLECTOR Work Phone: [facility] 05-22-2024 14:06-0400 Body mass index (BMI) [Ratio] 41.15 kg/m2 Samantha Maira [employer] MARKETING SPECIALIST.VENDING MACHINE COLLECTOR Work Phone: [facility] 05-22-2024 14:06-0400 Body temperature 98.1 [degF] Samantha Maira [employer] MARKETING SPECIALIST.VENDING MACHINE COLLECTOR Work Phone: [facility] 05-22-2024 14:06-0400 Body weight 91.35 kg Samantha Maira [employer] MARKETING SPECIALIST.VENDING MACHINE COLLECTOR Work Phone: [facility] 05-22-2024 14:06-0400 Diastolic blood pressure 78 mm[Hg] Samantha Maira [employer] MARKETING SPECIALIST.VENDING MACHINE COLLECTOR Work Phone: [facility] 05-22-2024 14:06-0400 Heart rate 103 /min Samantha Maiar [employer] MARKETING SPECIALIST.VENDING MACHINE COLLECTOR Work Phone: [facility] 05-22-2024 14:06-0400 SaO2% (BldA) [Mass fraction] 98 % Samantha Maira [employer] MARKETING SPECIALIST.VENDING MACHINE COLLECTOR Work Phone: [facility] 05-22-2024 14:06-0400 Systolic blood pressure 126 mm[Hg] Samantha Maira [employer] MARKETING SPECIALIST.VENDING MACHINE COLLECTOR Work Phone: [facility] 05-13-2024 09:48-0400 Body mass index (BMI) [Ratio] 41.97 kg/m2 Audrey Shree [employer] MARKETING SPECIALIST.VENDING MACHINE COLLECTOR Work Phone: [facility] 05-13-2024 09:48-0400 Body weight 93.17 kg Audrey Kjru [employer] MARKETING SPECIALIST.VENDING MACHINE COLLECTOR Work Phone: [facility] 05-13-2024 09:48-0400 Diastolic blood pressure 105 mm[Hg] Audrey Shree [employer] MARKETING SPECIALIST.VENDING MACHINE COLLECTOR Work Phone: [facility] 05-13-2024 09:48-0400 Heart rate 77 /min Audrey Sanchez [employer] MARKETING SPECIALIST.VENDING MACHINE COLLECTOR Work Phone: [facility] 05-13-2024 09:48-0400 Systolic blood pressure 162 mm[Hg] Audrey Sanchez [employer] MARKETING SPECIALIST.VENDING MACHINE COLLECTOR Work Phone: [facility] 03-27-2024 13:04-0400 Body height 149 cm Mily Haury [employer] MARKETING SPECIALIST.VENDING MACHINE COLLECTOR Work Phone: [facility] 03-27-2024 13:04-0400 Body mass index (BMI) [Ratio] 42.5 kg/m2 Mily Haury [employer] MARKETING SPECIALIST.VENDING MACHINE COLLECTOR Work Phone: [facility] 03-27-2024 13:04-0400 Body weight 94.35 kg Mily Blankury [employer] MARKETING SPECIALIST.VENDING MACHINE COLLECTOR Work Phone: [facility] 03-27-2024 13:04-0400 Diastolic blood pressure 78 mm[Hg] Mily Haury [employer] MARKETING SPECIALIST.VENDING MACHINE COLLECTOR Work Phone: [facility] 03-27-2024 13:04-0400 Systolic blood pressure 138 mm[Hg] Mily Haury [employer] MARKETING SPECIALIST.VENDING MACHINE COLLECTOR Work Phone: [facility] 03-07-2024 10:28-0400 Body height 147.3 cm Ciaran Vidal MD Work Phone: [facility] 03-07-2024 10:28-0400 Body weight 93.44 kg Ciaran Vidal MD Work Phone: [facility] 02-06-2024 11:18-0400 Diastolic blood pressure 92 mm[Hg] Samantha Maira [employer] MARKETING SPECIALIST.VENDING MACHINE COLLECTOR Work Phone: [facility] 02-06-2024 11:18-0400 Systolic blood pressure 152 mm[Hg] Samantha Maira [employer] MARKETING SPECIALIST.VENDING MACHINE COLLECTOR Work Phone: [facility] 02-06-2024 11:05-0400 Body height 147.3 cm Samantha Maira [employer] MARKETING SPECIALIST.VENDING MACHINE COLLECTOR Work Phone: [facility] 02-06-2024 11:05-0400 Body temperature 98.2 [degF] Samantha Maira [employer] MARKETING SPECIALIST.VENDING MACHINE COLLECTOR Work Phone: [facility] 02-06-2024 11:05-0400 Body weight 93.44 kg Samantha Rao [employer] MARKETING SPECIALIST.VENDING MACHINE COLLECTOR Work Phone: [facility] 02-06-2024 11:05-0400 Heart rate 102 /min Samantha Rao [employer] MARKETING SPECIALIST.VENDING MACHINE COLLECTOR Work Phone: [facility] 02-06-2024 11:05-0400 Respiratory rate 18 /min Samantha Rao [employer] MARKETING SPECIALIST.VENDING MACHINE COLLECTOR Work Phone: [facility] 02-06-2024 11:05-0400 SaO2% (BldA) [Mass fraction] 97 % Samantha Rao [employer] MARKETING SPECIALIST.VENDING MACHINE COLLECTOR Work Phone: [facility] 12-24-2023 12:38-0500 Body height 147.3 cm RENNY CHAPIN MD [facility] 12-24-2023 12:38-0500 Body weight 100 kg RENNY CHAPIN MD [facility] 12-24-2023 12:38-0500 Diastolic Blood Pressure Non-Invasive 120 mm[Hg] RENNY CHAPIN MD [facility] 12-24-2023 12:38-0500 Heart rate 109 /min RENNY CHAPIN MD [facility] 12-24-2023 12:38-0500 Respiratory rate 20 /min RENNY CHAPIN MD [facility] 12-24-2023 12:38-0500 Systolic Blood Pressure Non-Invasive 183 mm[Hg] RENNY CHAPIN MD [facility] Encounters Encounter Date Encounter Type Care Provider Facility Start: 04-21-2025 End: 05-22-2025 ambulatory Samantha Rao [employer] MARKETING SPECIALIST.VENDING MACHINE COLLECTOR Work Phone: [facility] Start: 10-06-2024 End: 10-08-2024 Telephone encounter Samantha Rao APRN.NEGRITO Work Phone: [facility] Start: 09-24-2024 End: 09-24-2024 Telephone encounter Tasneem Mchugh PSYD Work Phone: [facility] Comment on above: Appointment (#4 No S how) Start: 09-10-2024 End: 09-10-2024 Telephone encounter Tasneem Mchugh PSYD Work Phone: [facility] Comment on above: Appointment (Appoint ment available at 1:30 pm today and did she want to schedule) Start: 09-09-2024 End: 09-09-2024 Patient encounter procedure Audrey Sanchez APRN.VENDING MACHINE COLLECTOR Work Phone: Psychiatry Comment on above: APPOINTMENT CANCELLE D (Primary Dx) Start: 08-20-2024 End: 08-20-2024 Telephone encounter Tasneem Mchugh PSYD Work Phone: [facility] Comment on above: Appointment (Called to schedule follow up appointment, lvm) Start: 08-18-2024 End: 08-18-2024 Refill Samantha Rao APRN.VENDING MACHINE COLLECTOR Work Phone: [facility] Comment on above: Refill Request Start: 08-05-2024 End: 08-20-2024 Telephone encounter Samantha Rao APRN.VENDING MACHINE COLLECTOR Work Phone: [facility] Comment on above: Denial: [id number] MRI BR AIN WO/W IVCON Start: 07-30-2024 End: 07-30-2024 Telephone encounter Tasneem Mchugh PSYD Work Phone: [facility] Comment on above: Appointment Start: 07-11-2024 End: 07-11-2024 ambulatory AUDREY SANCHEZ Facility:[facility] Start: 07-11-2024 End: 07-11-2024 Patient encounter procedure Audrey Sanchez APRN.VENDING MACHINE COLLECTOR Work Phone: Psychiatry Comment on above: JAVI (generalized anx iety disorder) (Primary Dx); Mood disorder (HCC); Marijuana use; Nicotine use Start: 05-30-[address] APRN.VENDING MACHINE COLLECTOR Work Phone: [facility] Comment on above: Refill Request Start: 05-22-2024 End: 05-22-2024 Patient encounter procedure Samantha Rao APRN.VENDING MACHINE COLLECTOR Work Phone: [facility] Comment on above: Cataplexy (Primary D x); Daytime sleepiness; Dysphasia; Muscle weakness-general Start: 05-14-2024 Telephone encounter Samantha Rao APRN.VENDING MACHINE COLLECTOR Work Phone: [facility] Comment on above: Results Start: 05-13-2024 End: 05-13-2024 ambulatory SAMANTHA RAO Facility:[facility] Start: 05-13-2024 End: 05-13-2024 Patient encounter procedure Audrey Sanchez APRN.VENDING MACHINE COLLECTOR Work Phone: Psychiatry Comment on above: JAVI (generalized anx iety disorder) (Primary Dx); Mood disorder (HCC); Marijuana use; Nicotine use Start: 05-07-2024 Telephone encounter Samantha Rao APRN.VENDING MACHINE COLLECTOR Work Phone: [facility] Comment on above: Orders Start: 04-30-2024 End: 04-30-2024 Patient encounter procedure Tasneem Mchugh PSYD Work Phone: [facility] Comment on above: Moderate episode of recurrent major depressive disorder (HCC) (Primary Dx); JAVI (generalized anxiety disorder) Start: 03-28-2024 Telephone encounter Mily osei APRN.VENDING MACHINE COLLECTOR Work Phone: OB/Gynecology Comment on above: Results Start: 03-27-2024 End: 03-27-2024 ambulatory MILY ERWIN Facility:[facility] Start: 03-27-2024 End: 03-27-2024 Patient encounter procedure Mily Haury [employer] MARKETING SPECIALIST.VENDING MACHINE COLLECTOR Work Phone: OB/Gynecology Comment on above: Encounter for gyneco logical examination (general) (routine) without abnormal findings (Primary Dx); Screening for cervical cancer; Encounter for screening for human papillomavirus (HPV); Pap smear for cervical cancer screening; Encounter for screening mammogram for breast cancer; Screen for STD (sexually transmitted disease) Start: 03-27-2024 End: 03-27-2024 Patient encounter status Mily Erwin [employer] MARKETING SPECIALIST.VENDING MACHINE COLLECTOR Work Phone: [facility] Start: 03-19-2024 Telephone encounter Samantha Rao [employer] MARKETING SPECIALIST.VENDING MACHINE COLLECTOR Work Phone: [facility] Comment on above: Missed Appointment ( 1st no show in 365 days (1st letter sent)) Start: 03-11-2024 Telephone encounter Samantha Rao APRN.VENDING MACHINE COLLECTOR Work Phone: [facility] Comment on above: Results Start: 03-11-2024 End: 03-11-2024 Patient encounter procedure Audrey Sanchez APRN.VENDING MACHINE COLLECTOR Work Phone: Psychiatry Comment on above: APPOINTMENT CANCELLE D (Primary Dx) Start: 03-07-2024 Documentation procedure Mammog marge Coordinator [facility] Start: 03-07-2024 Letter encounter Mammography Coordinator [facility] Department Start: 03-07-2024 End: 03-07-2024 Patient encounter procedure Ciaran Vidal MD Work Phone: [facility] Comment on above: Right carpal tunnel syndrome (Primary Dx); Right hand pain; Ganglion cyst of volar aspect of right wrist Start: 03-06-2024 End: 03-06-2024 ambulatory SAMANTHA RAO Facility:[facility] Start: 03-06-2024 End: 03-06-2024 Subsequent hospital visit by physician Screen Mammo [facility] Comment on above: Encounter for screen ing mammogram for malignant neoplasm of breast [Z12.31] Right hand pain [M79 .641] Start: 03-04-2024 Orders Only Sujit Thomason PA-C Work Phone: [facility] Comment on above: Right hand pain (Ani dalila Dx) Start: 03-03-2024 Telephone encounter Samantha Rao APRN.VENDING MACHINE COLLECTOR Work Phone: [facility] Comment on above: Results Start: 02-27-2024 Telephone encounter Tasneem Char dobbins PSYD Work Phone: [facility] Comment on above: Appointment Start: 02-25-2024 End: 02-25-2024 Nursing evaluation of patient and report Mi Nurse Work Phone: [facility] Comment on above: Essential hypertensi on, benign; Palpitations Start: 02-25-2024 End: 02-25-2024 ambulatory SAMANTHA RAO Facility:[facility] Start: 02-06-2024 End: 02-06-2024 Patient encounter procedure Tasneem Berlin PSYD Work Phone: [facility] Comment on above: Moderate episode of recurrent major depressive disorder (HCC) (Primary Dx); JAVI (generalized anxiety disorder) Essential hypertensi on, benign (Primary Dx); Depression, unspecified depression type; Anxiety; Mixed hyperlipidemia Start: 02-05-2024 Telephone encounter Samantha Rao APRN.VENDING MACHINE COLLECTOR Work Phone: [facility] Comment on above: Results Start: 01-24-2024 End: 01-24-2024 ambulatory SAMANTHA RAO Facility:[facility] Start: 01-15-2024 Telephone encounter Samantha Rao APRN.VENDING MACHINE COLLECTOR Work Phone: [facility] Comment on above: Patient Question Start: 01-08-2024 Telephone encounter Samantha Rao APRN.VENDING MACHINE COLLECTOR Work Phone: [facility] Comment on above: Patient Question Start: 12-24-2023 End: 12-24-2023 Emergency department patient visit RENNY CHAPIN MD [facility] Procedures Date Procedure Procedure Detail Performing Clinician Start: 03-27-2024 Iadna chlamydia trachomatis amplified probe tq Mily Erwin APRN.VENDING MACHINE COLLECTOR Work Phone: Start: 02-25-2024 Ecg routine ecg w/le ast 12 lds i&r only [facility] Provider Start: 01-24-2024 Lipid 1996 panel - S kamilah or Plasma Samantha Rao APRN.NEGRITO Work Phone: Start: 03-10-2014 Lipid 1996 panel - S kamilah or Plasma Samantha Rao APRN.NEGRITO Work Phone: Plan of Treatment Date Care Activity Detail Author Start: 03-27-2029 Screening for malign ant neoplasm of cervix [facility] Start: 01-23-2029 Lipid panel Lipid Screening [facility] Start: 01-23-2027 Diabetes Screening Diabetes Screenin g [facility] Start: 07-27-2025 Influenza vaccination Influenz a Vaccine (Season Ended) [facility] Start: 05-22-2025 Annual PCP Team President & Ceo nury Disease Visit Annual PCP Team Chronic Disease Visit [facility] Start: 05-22-2025 BP Controlled (<130/80) BP Controlle d (<130/80) [facility] Start: 05-07-2025 Urine microalbumin profile DTaP,Tdap,Td Vaccine (2 - Td or Tdap) [facility] Start: 03-27-2025 End: 03-27-2025 Patient encounter procedure Mammogram Comment on above: Encounter for screen ing mammogram for breast cancer [Z12.31] Annual Start: 03-27-2025 Screening for malign ant neoplasm of cervix Cervical Cancer Screening [facility] Start: 03-06-2025 Screening for malign ant neoplasm of breast Mammogram Screening [facility] Start: 02-05-2025 Annual PCP Team President & Ceo nury Disease Visit Annual PCP Team Chronic Disease Visit [facility] Start: 12-25-2024 Annual PCP Team President & Ceo nury Disease Visit Annual PCP Team Chronic Disease Visit [facility] Start: 12-25-2024 Pneumococcal vaccination Pneumococcal Vaccine (1 of 2 - PCV) [facility] Comment on above: Postponed from 04/23 (Declined at this time) Start: 09-24-2024 End: 09-24-2024 Patient encounter procedure 09/24/2024 10:30 AM EDT Office Visit [facility] Behavioral Medicine [address] [place] [id number] Tasneem Mchugh, PSYD [address] [place] [address] Follow up appointment [facility] Comment on above: Follow up appointmen t Start: 09-09-2024 End: 09-09-2024 Patient encounter procedure 09/09/2024 8:00 AM EDT Office Visit Psychiatry [address] [place] [address] Audrey Sanchez, [employer] MARKETING SPECIALIST.VENDING MACHINE COLLECTOR [address] [place] [address] follow up 2 months Psychiatry Comment on above: follow up 2 months Start: 08-25-2024 End: 08-25-2024 Patient encounter procedure [facility] Comment on above: for HTN. LMTRS 08/12/24 @ 1: 04 pm Start: 08-18-2024 End: 08-18-2024 ambulatory 08/18/2024 9:25 AM EDT Procedure Neurology [address] [place] [address] Right carpal tunnel syndrome [G56.01] Neurology Comment on above: Right carpal tunnel syndrome [G56.01] Start: 08-15-2024 End: 08-15-2024 Patient encounter procedure 08/15/2024 8:30 AM EDT Office Visit Pulmonary Medicine [address] [place] [address] Ciaran Clark MD [address] [place] [address] daytime sleepiness Pulmonary Medicine Comment on above: daytime sleepiness Start: 08-08-2024 End: 08-08-2024 Patient encounter procedure 08/08/2024 8:00 AM EDT Appointment Radiology [address] [place], [place] [id number] Dysphasia [R47.02]; Muscle weakness-general [M62.81] Radiology Comment on above: Dysphasia [R47.02]; Muscle weakness-general [M62.81] Start: 07-27-2024 Influenza vaccination C [facility] Start: 07-08-2024 End: 07-08-2024 Patient encounter procedure 07/08/2024 8:00 AM EDT Office Visit Psychiatry [address] [place] [id number] Audrey Sanchez, [employer] MARKETING SPECIALIST.VENDING MACHINE COLLECTOR [address] [facility] [place] [address] FOLLOW UP Psychiatry Comment on above: FOLLOW UP Start: 05-28-2024 End: 05-28-2024 Patient encounter procedure 05/28/2024 10:30 AM EDT Office Visit [facility] [address], [place] [phone] Tasneem Mchugh PSYD [address] [place], [place] [phone] follow up. [facility] Comment on above: follow up. Start: 05-25-2024 Influenza vaccination Influenza Vacc ine (#1) [facility] Comment on above: Postponed from 07/27 (Declined at this time) Start: 05-22-2024 End: 05-22-2024 Patient encounter procedure 05/22/2024 2:00 PM EDT Office Visit [facility] [address] [place], [place] [phone] Samantha Rao, ECOMMERCE MARKETING SPECIALIST.VENDING MACHINE COLLECTOR [address], [place] [phone] follow up medication , pap and mamagram results [facility] Comment on above: follow up medication , pap and mamagram results Start: 05-22-2024 End: 08-21-2024 TOXICOLOGY SCREEN, ROUTINE URINE TOXICOLOGY SCREEN, ROUTINE URINE Lab Routine Cataplexy Daytime sleepiness Expected: 05/22/2024, Expires: 08/21/2024 [facility] Comment on above: Expected: 05/22/2024 , Expires: 08/21/2024 Start: 05-13-2024 End: 05-13-2024 Patient encounter procedure 05/13/2024 10:00 AM EDT Office Visit Psychiatry [address] [place] [phone] Audrey Sanchez, ECOMMERCE MARKETING SPECIALIST.VENDING MACHINE COLLECTOR [address] [place] [phone] Depression, unspecified depression type [F32.A] Psychiatry Comment on above: Depression, unspecif ied depression type [F32.A] Start: 05-08-2024 End: 05-08-2024 Patient encounter procedure 05/08/2024 9:00 AM EDT Office Visit [facility] [address] [place], [place] [phone] Samantha Rao, ECOMMERCE MARKETING SPECIALIST.VENDING MACHINE COLLECTOR [address] [place] [address] follow up medication , pap and mamagram results [facility] Comment on above: follow up medication , pap and mamagram results Start: 05-07-2024 End: 08-06-2024 CBC panel - Blood by Automated count COMPLETE BLOOD COUNT Lab Routine Essential hypertension, benign Expected: 05/07/2024, Expires: 08/06/2024 [facility] Work Phone: Comment on above: Expected: 05/07/2024 , Expires: 08/06/2024 Start: 03-27-2024 End: 03-27-2024 Patient encounter procedure 03/27/2024 1:00 PM EDT Office Visit OB/Gynecology [address] [place], [place] [phone] Mily Erwin, ECOMMERCE MARKETING SPECIALIST.VENDING MACHINE COLLECTOR [address] [place] [phone] Screening for cervical cancer [Z12.4] [facility] Comment on above: Screening for cervic al cancer [Z12.4] Start: 2021 Shingrix Vaccine (1 of 2) Shingrix Vaccine (1 of 2) [facility] Start: 03-10-2019 Lipid panel Lipid Screening [facility] Start: 03-10-2017 Diabetes Screening Diabetes Screenin g [facility] Start: 12-20-2016 Screening for malign ant neoplasm of cervix [facility] Start: 2016 Screening for malign ant neoplasm of colon [facility] Start: 03-17-2015 Screening for malign ant neoplasm of breast Mammogram Screening [facility] Start: 1990 Hepatitis B Vaccine (1 of 3 - 19+ 3-dose series) Hepatitis B Vaccine (1 of 3 - 19+ 3-dose series) [facility] Start: 1990 Pneumococcal Vaccine : 50+ (1 of 2 - PCV) Pneumococcal Vaccine: 50+ (1 of 2 - PCV) [facility] Start: 1989 BP Controlled (<130/80) BP Controlle d (<130/80) [facility] Start: 1989 Hepatitis C screening Hepatitis C Sc reening [facility] Start: 1971 Hepatitis B Vaccine (1 of 3 - 3-dose series) Hepatitis B Vaccine (1 of 3 - 3-dose series) [facility] ACTIGRAPHY TESTING ACTIGRAPHY TE STING Procedures Routine Cataplexy Daytime sleepiness 1 Occurrences starting 05/22/2024 [facility] Comment on above: 1 Occurrences starti ng 05/22/2024 End: 04-26-2025 DBT Breast - bilateral screening ROSY SCREENING W NELDA Radiology Routine Encounter for screening mammogram for breast cancer 1 Occurrences starting 03/27/2024 until 04/26/2025 [facility] Work Phone: Comment on above: 1 Occurrences starti ng 03/27/2024 until 04/26/2025 End: 05-21-2026 DBT Breast - bilateral screening ROSY SCREENING W NELDA Radiology Routine Encounter for screening mammogram for breast cancer 1 Occurrences starting 04/21/2025 until 05/21/2026 [facility] Work Phone: Comment on above: 1 Occurrences starti ng 04/21/2025 until 05/21/2026 ECG COMPLETE ECG COMPLETE ECG 02/25/2024 10:09 AM EDT [facility] End: 03-07-2025 EMG(NEURO/NI) EMG(NEURO/NI) EMG Routine Right carpal tunnel syndrome 1 Occurrences starting 03/07/2024 until 03/07/2025 [facility] Work Phone: Comment on above: 1 Occurrences starti ng 03/07/2024 until 03/07/2025 MG Breast Screening ROSY SCREENIN G Radiology Routine Encounter for screening mammogram for malignant neoplasm of breast 03/06/2024 12:06 PM EDT [facility] Work Phone: End: 06-21-2025 MR Brain WO and W contrast IV MRI BRAIN WO/W IVCON Radiology Routine Dysphasia Muscle weakness-general 1 Occurrences starting 05/22/2024 until 06/21/2025 [facility] Work Phone: Comment on above: 1 Occurrences starti ng 05/22/2024 until 06/21/2025 End: 05-22-2025 MULTIPLE SLEEP LATENCY TEST MULTIPLE SLEEP LATENCY TEST Procedures Routine Cataplexy Daytime sleepiness 1 Occurrences starting 05/22/2024 until 05/22/2025 [facility] Comment on above: 1 Occurrences starti ng 05/22/2024 until 05/22/2025 PAP TEST PAP TEST Lab [facility] Encounter for screening for human papillomavirus (HPV) Pap smear for cervical cancer screening 03/27/2024 1:34 PM EDT [facility] End: 05-22-2025 Polysomnogram POLYSOMNOGRAM (PSG) Procedures Routine Cataplexy Daytime sleepiness 1 Occurrences starting 05/22/2024 until 05/22/2025 [facility] Comment on above: 1 Occurrences starti ng 05/22/2024 until 05/22/2025 End: 04-03-2025 XR Hand - right PA and Lateral and Oblique XR HAND GENERAL 3V PA/LAT/OBL RIGHT Radiology Routine Right hand pain 1 Occurrences starting 03/04/2024 until 04/03/2025 [facility] Work Phone: Comment on above: 1 Occurrences starti ng 03/04/2024 until 04/03/2025 XR Hand - right PA a nd Lateral and Oblique XR HAND GENERAL 3V PA/LAT/OBL RIGHT Radiology Routine Right hand pain 03/06/2024 11:19 AM EDT [facility] Work Phone: [facility] Payers Date Payer Category Payer Private Health Insurance SHAE CAPONE [id number] 2023 Medicaid [id number] 2022 Medicaid [id number] Social History Date Type Detail Facility Start: 12-24-2023 Tobacco smoking status Heavy t obacco smoker (finding) [facility] Sex Assigned At Female [facility] Start: 11-02-1997 End: 03-27-2024 Tobacco smoking status NHIS Smokes tobacco daily [facility] Start: 11-02-1997 History of tobacco use Cigarette Smo ker [facility] Start: 11-02-2015 End: 12-06-2023 Cigarettes smoked current (pack per day) - Reported 0.5 [facility] Work Phone: Start: 11-02-2015 End: 03-27-2024 Tobacco use and exposure Smokeless tobacco non-user [facility] Start: 12-25-2023 End: 07-11-2024 Alcohol intake Current non-drinker of alcohol (finding) [facility] Start: 12-06-2023 End: 12-25-2023 Tobacco use panel [facility] Work Phone: National Score (1-10 0), lower number is lower risk 91 [facility] Work Phone: Start: 12-25-2023 Alcohol Comment rare [facility] Start: 1970 Sex Assigned At Not on file C [facility] Functional Status Date Assessment Result Facility 12-24-2023 Functional Status Standard Safet y ID band on, Call device within reach, Bed in low position, Wheels locked [facility] 05-11-2015 Are you deaf, or do you have serious difficulty hearing No 05/11/2015 8:05 AM WENDYT Ovidio Guerra LPN No [facility] 05-11-2015 Are you blind, or do you have serious difficulty seeing, even when wearing glasses No 05/11/2015 8:05 AM EDT Ovidio Guerra LPN No [facility] 05-11-2015 Do you have serious difficulty walking or climbing stairs No 05/11/2015 8:05 AM EDT Ovidio Guerra LPN No [facility] 05-11-2015 Do you have difficul ty dressing or bathing No 05/11/2015 8:05 AM Ovidio Lozoya LPN No [facility] 05-11-2015 Because of a physica l, mental, or emotional condition, do you have difficulty doing errands alone such as visiting a physician's office or shopping No 05/11/2015 8:05 AM EDT Ovidio Guerra LPN No [facility] Mental Status Date Assessment Result Facility 12-24-2023 Mental Status Orientation Oriented x 4 [facility] 05-11-2015 Because of a physica l, mental, or emotional condition, do you have serious difficulty concentrating, remembering, or making decisions No 05/11/2015 8:05 AM EDT Ovidio Guerra LPN No [facility] Clinical Notes 12-24-2023 to 04-21-2025 Telephone Encounter - Mariella Sommers LPN - 10/08/2024 4:43 PM ESTTelephone Encounter - Mariella Sommers LPN - 10/08/2024 4:43 PM ESTTelephone Encounter - Jane Livingston - 09/24/2024 11:24 AM EDT Note Date & Type Note Facility 04-21-2025 Note Patient Outreach (AG INTMLW) DANTEZOFIA Obed ([id number]) 1970 F Date Time Provider Department 04/21/25 SAMANTHA RAO AGINTMLW During your visit today, we recorded the following information about you: Allergies As of Date: 04/21/2025 (No Known Allergies) Date Reviewed: 07/11/2024 Reviewed by: Carisa Wells MA - Fully Assessed Visit Diagnosis:Encounter for screening mammogram for breast cancer [Z12.31] Order(s):ROSY BELLO W NELDA [[id number]] Order #: [id number] FUTURE Prescriptions as of 05/22/2025 - atorvastatin (LIPITOR) 20 mg tablet Take 1 tablet by mouth once daily. At bedtime - QUEtiapine (SEROQUEL) 50 mg tablet Take 1 tablet by mouth daily at bedtime. - sertraline (ZOLOFT) 100 mg tablet Take 2 tablets by mouth once daily. - losartan-hydroCHLOROthiazide (HYZAAR) 50-12.5 mg per tablet take 1 tablet by mouth once daily. Problem List As Of Date 04/21/2025 Noted Resolved ADJUSTMENT DISORDER WITH DEPRESSED MOOD [F43.21]01/24/2007 Anxiety [F41.9] 03/22/2012 Essential hypertension, benign [I10] 04/09/2012 Arm contusion [S40.029A] 10/22/2015 Foreign body in forearm [S50.859A] 11/02/2015 Depression [F32.A] 12/25/2023 Right hand pain [M79.641] 03/07/2024 Ganglion cyst of volar aspect of right wrist [M*03/07/2024 Right carpal tunnel syndrome [G56.01] 03/07/2024 Atypical squamous cells of undetermined signifi*04/17/2024 Encounter Status:Closed by EPIC, PRODUSER on 05/22/25 [facility] 10-08-2024 Telephone encounter Note Call placed to pt, advised of the information in this note. Pt verbalized an understanding. Mariella Sommers LPN [facility] 10-08-2024 Miscellaneous Notes Call placed to pt, advised of the information in this note. Pt verbalized an understanding. Mariella Sommers LPN Please let pt know we received her disability paperwork. She will need to go to [facility] for disability evaluation for one portion of this and the other is psychological which will have to be completed by her psych r. Please forward these papers. Please give her number to [facility]. documented in this encounter [facility] 10-06-2024 Telephone encounter Note Please let pt know we received her disability paperwork. She will need to go to [facility] for disability evaluation for one portion of this and the other is psychological which will have to be completed by her psych r. Please forward these papers. Please give her number to [facility]. [facility] 09-24-2024 Telephone encounter Note No Shows: 03/19/24 at 10:30 am 05/28/24 at 10:30 am 07/30/24 at 9:30 am 09/24/24 at 10:30 am No Show Documentation Zofia Ragland no showed for an appointment on 09/24/24 with Tasneem Mchugh PSYD at 10:30 am. She was scheduled for follow up appointment. I called and did not speak with the patient regarding her missed appointment, but left voicemail. Zofia stated the reason that she missed her appointment was because N/A . Resources discussed/offered to patient: N/A No show determined to be fault of patient: Yes This is the patients fourth no show in the last 12 months. Patient was rescheduled for N/A. Letter mailed : Yes Is this the Third or Fourth No Show? Yes. Was the property claims manager/coordinator contacted? Yes Jane Livingston September 24, 2024 11:26 AM [facility] 09-24-2024 Miscellaneous Notes No Shows: 03/19/24 at 10:30 am 05/28/24 at 10:30 am 07/30/24 at 9:30 am 09/24/24 at 10:30 am No Show Documentation Zofia Ragland no showed for an appointment on 09/24/24 with Tasneem Mchugh PSYD at 10:30 am. She was scheduled for follow up appointment. I called and did not speak with the patient regarding her missed appointment, but left voicemail. Zofia stated the reason that she missed her appointment was because N/A . Resources discussed/offered to patient: N/A No show determined to be fault of patient: Yes This is the patients fourth no show in the last 12 months. Patient was rescheduled for N/A. Letter mailed : Yes Is this the Third or Fourth No Show? Yes. Was the property claims manager/coordinator contacted? Yes Jane Livingston September 24, 2024 11:26 AM documented in this encounter [facility] 09-10-2024 Telephone encounter Note Appointment at 1:30 pm today and did she want to schedule Jane Livingston September 10, 2024 8:54 AM [facility] 09-10-2024 Miscellaneous Notes Appointment at 1:30 pm today and did she want to schedule Jane Livingston September 10, 2024 8:54 AM documented in this encounter [facility] 09-09-2024 History of Presen t illness Narrative Patient was not able to attend the appointment this morning as she had to go to urgent care due to chest pain. documented in this encounter [facility] 09-09-2024 Note HNO ID: [id number] Author: UADREY SANCHEZ APRN.CNP Service: ? Author Type: Nurse Practitioner Type: Progress Notes Filed: 09/09/2024 09:48 Note Text: Patient was not able to attend the appointment this morning as she had to go to urgent care due to chest pain. [facility] 08-20-2024 Telephone encounter Note Left message for pt to call office. Mariella Sommers LPN [facility] 08-20-2024 Miscellaneous Notes Left message for pt to call office. Mariella Sommers LPN Unfortunately due to her symptoms she needs to see specialists. Which includes neurologist and sleep medicine. I believe her insurance should provide transportation for her to doctor appts. This way she can schedule these. Patient informed and states that she cannot drive to [place] for the sleep medicine specialist because she cannot drive long distances and she does not have anyone to drive her. States her medications are not working and they will not let her schedule with Dr. Mchugh here at our office, is very upset stating it is our front office staffs fault because they told her she missed appointments and did not have appointments when she knew she did. States they refused to schedule her. Patient is very upset and said nobody can help her and hung up. Please advise. Gay He MA Pt to be notified of deny. Pt had normal neuro and PE exam. I would recommend she follow up with sleep medicine as referred and would recommend she see neurology for further evaluation of her symptoms. They can order testing if they feel is necessary. Denial Type: Payer Clinical Guidelines Not Met Denial Rationale: Based on what was given, you have a problem, your doctor's request cannot be approved. A person might need a(n) Brain MRI (with or without Internal Auditory Canal views) if these notes have/has been given: doctor's notes that say why this test is needed. The doctor's notes should say how this test will change your treatment. The information we got did not include these notes. Is Peer to Peer Available? YES Peer to Peer Deadline: Must be completed by: 08/07/2024 Insurance Case# [id number] Peer to Peer opt 2 (enter tracking#) / opt 1 Note: peer to peer can not be scheduled. Denial sent to providers email. documented in this encounter [facility] 08-20-2024 Telephone encounter Note Called to schedule follow up appointment, lisette Livingston August 20, 2024 1:27 PM [facility] 08-20-2024 Miscellaneous Notes Called to schedule follow up appointment, lisette Livingston August 20, 2024 1:27 PM documented in this encounter [facility] 08-18-2024 Telephone encounter Note Pharmacy requesting refills as follows: Last office visit: 05/22/24 Last refill: 02/06/24 Requested Prescriptions Pending Prescriptions Disp Refills atorvastatin (LIPITOR) 20 mg tablet [Pharmacy Med Name: atorvastatin 20 mg tablet] 90 tablet 1 Sig: Take 1 tablet by mouth once daily. At bedtime Please review and advise. Gini Kirkland [facility] 08-18-2024 Miscellaneous Notes Pharmacy requesting refills as follows: Last office visit: 05/22/24 Last refill: 02/06/24 Requested Prescriptions Pending Prescriptions Disp Refills atorvastatin (LIPITOR) 20 mg tablet [Pharmacy Med Name: atorvastatin 20 mg tablet] 90 tablet 1 Sig: Take 1 tablet by mouth once daily. At bedtime Please review and advise. Gini Kirkland documented in this encounter [facility] 08-10-2024 Telephone encounter Note Unfortunately due to her symptoms she needs to see specialists. Which includes neurologist and sleep medicine. I believe her insurance should provide transportation for her to doctor appts. This way she can schedule these. [facility] 08-08-2024 Telephone encounter Note Patient informed and states that she cannot drive to [place] for the sleep medicine specialist because she cannot drive long distances and she does not have anyone to drive her. States her medications are not working and they will not let her schedule with Dr. Mchugh here at our office, is very upset stating it is our front office staffs fault because they told her she missed appointments and did not have appointments when she knew she did. States they refused to schedule her. Patient is very upset and said nobody can help her and hung up. Please advise. Gay He MA [facility] 08-06-2024 Telephone encounter Note Pt to be notified of deny. Pt had normal neuro and PE exam. I would recommend she follow up with sleep medicine as referred and would recommend she see neurology for further evaluation of her symptoms. They can order testing if they feel is necessary. T [facility] 08-05-2024 Telephone encounter Note Denial Type: Payer Clinical Guidelines Not Met Denial Rationale: Based on what was given, you have a problem, your doctor's request cannot be approved. A person might need a(n) Brain MRI (with or without Internal Auditory Canal views) if these notes have/has been given: doctor's notes that say why this test is needed. The doctor's notes should say how this test will change your treatment. The information we got did not include these notes. Is Peer to Peer Available? YES Peer to Peer Deadline: Must be completed by: 08/07/2024 Insurance Case# [id number] Peer to Peer opt 2 (enter tracking#) / opt 1 Note: peer to peer can not be scheduled. Denial sent to providers email. T [facility] 07-30-2024 Telephone encounter Note Called patient regarding her frequent no shows and explained the [facility] No Show policy. Patient said she did not miss all of them. She said some of them she called to cancel. I did explain that we have to be called at least 24 hours if at all possible in the future before cancelling or missing an appointment. I told Zofia to try to set up MyChart on her phone and that it could help her remember her appointments. Zofia said she has had trouble with her phone. I also gave her the main phone number to reach Dr. Mchugh's medical unit secretary to schedule or confirm her appointments. [phone]. [facility] 07-30-2024 Miscellaneous Notes Called patient regarding her frequent no shows and explained the [facility] No Show policy. Patient said she did not miss all of them. She said some of them she called to cancel. I did explain that we have to be called at least 24 hours if at all possible in the future before cancelling or missing an appointment. I told Zofia to try to set up MyChart on her phone and that it could help her remember her appointments. Zofia said she has had trouble with her phone. I also gave her the main phone number to reach Dr. Mchugh's medical unit secretary to schedule or confirm her appointments. [phone]. documented in this encounter [facility] 07-11-2024 Instructions Audrey Sanchez APRN.VENDING MACHINE COLLECTOR - 07/11/2024 8:53 AM EDT Benbrigette Villagranise, It was good to talk with you today. Below is a summary of the plan that we discussed during your appointment for reference. Of course, if you have any questions or concerns do not hesitate to reach out to me via a message or call. Audrey Manuel APRN.VENDING MACHINE COLLECTOR PLAN AND FOLLOW UP: 1) Increase Zoloft to 200 mg dose total to help with anxiety symptoms. 2) Increase Seroquel to 50 mg at bedtime to help with racing thoughts and sleep difficulties. 3) Discussed reducing marijuana use due to its impact on brain health. Patient was accepting of the recommendation. 4) Schedule an appointment with Dr. Mchugh for therapy. 5) Schedule EMG for carpal tunnel evaluation. 6) Schedule sleep study as well as MRI for evaluation of sleep disorder. 7) Consider neuropsychiatric testing after sleep disorder is evaluated due to concerns of cognitive difficulties and executive functioning. For those experiencing a suicidal crisis: --call the National Suicide Prevention Lifeline at 517 (365-100-8652) --text the Crisis Text Line (text HOME to 946320) --call 737 and let them know you are having a mental health crisis or go to your nearest Emergency Room for stabilization. --You can also call Mobile Crisis at 366-129-8680. Next appointment: September 09 at 8 am in person -- Please call my nurse at [phone] or send me a message in [employer] with any questions or concerns between appointments. documented in this encounter [facility] 07-11-2024 Note HNO ID: [id number] Author: AUDREY SANCHEZ APRN.CNP Service: ? Author Type: Nurse Practitioner Type: Progress Notes Filed: 07/11/2024 09:12 Note Text: FOLLOW UP - PSYCHIATRIC PROGRESS NOTE PATIENT: Zofia Ragland DATE: July 11, 2024 Visit Type:In person All information is from Patient report except when noted. This evaluation is NOT intended for forensic, disability or child custody purposes. CC: Presenting today for follow up regarding psychiatric medication management. HPI: Treatment Plan from Last Visit on 05/13/2024: Increase Zoloft to 150 mg dose as it was beneficial and tolerable for the patient in the past. Start Seroquel to help with racing thoughts and sleep difficulties. May need to gradually increase dose as tolerated. Continue individual psychotherapy with Dr. Tasneem Mchugh. Today Zofia shares that she has some frustration about scheduling the sleep studies as she has ride issues to get to appointments that are farther from home. She continues to struggle with excessive daytime drowsiness. Has reviewed her concerns with her PCP. Has been referred to sleep medicine for evaluation of Narcolepsy. Reported significant cataplexy symptoms to PCP. Discussed the rationale for sleep medicine referral in detail with the patient. Has been able to notice improvement in anxiety with the increase in Zoloft. Feels that it has taken the edge off her anxiety. Continues to struggle with anxiety. Denies side effects from the Zoloft. In agreement to try a higher dose. Shares that she is tolerating Seroquel now at the 25 mg dose. Denies any side effects. Noticed some improvement in her racing thoughts. Still only able to sleep 2 to 3 hours in one Also reports struggles with carpal tunnel. Has struggled to get organized to get the EMG scheduled. Reviewed the orthopedic provider's note from February. Provided numbers for patient to call to schedule the EMG. Would like to reschedule her appointment with Dr. Mchugh. Discussed barriers to scheduling appointment as a faulty phone and difficulty remembering to call to schedule her various appointments. She continues to use marijuana. I take 2 to 3 hits a day to get me through the day and focus. Shares that she does not use it to get high. Accepting of the rationale to decrease and discontinue use as tolerated. No change in nicotine use (1 pack every 3 to 4 days). Drinks mountain dew (18 pack finished in 3 weeks). Interval Progress: Slightly improved PATIENT DATA: Generalized Anxiety Disorder Scale (JAVI-7) 04/30/2024 05/13/2024 JAVI - 7 SCORES Score 16 19 (0-4) minimal anxiety, (5-9) mild anxiety, (10-14) moderate anxiety, (15-21) severe anxiety Patient Health Questionnaire (PHQ-9) 04/30/2024 05/13/2024 PHQ-9 Score 20 17 (0-4) minimal depression, (5-9) mild depression, (10-14) moderate depression, (15-19) moderately severe depression, (20-27) severe depression PAST MEDICAL HISTORY 03/22/2012: Anxiety No date: Depression No date: Dysthymic disorder Comment: Depression (non-psychotic) 04/09/2012: Essential hypertension, benign No date: Unspecified chronic bronchitis (HCC) Comment: Chronic bronchitis PAST SURGICAL HISTORY 1975: ADENOIDECTOMY PRIMARY Comment: Adenoidectomy 1994,2004: DELIVERY ONLY Comment: , low cervical 1995: DILATION AND CURETTAGE DXAND/THER NONOBSTETRIC Comment: Dilation AND curettage 76: MYRINGOTOMY [facility] ANES Comment: Myringotomy/tubes No date: TONSILLECTOMY PRIMARY/SECONDARY Comment: Tonsillectomy 2005: TUBAL LIGATION, ALLERGIES No Known Allergies Current Outpatient Medications on File Prior to Visit Medication Sig losartan-hydroCHLOROthiazide (HYZAAR) 50-12.5 mg per tablet take 1 tablet by mouth once daily. sertraline (ZOLOFT) 100 mg tablet Take 1.5 tablets by mouth once daily. QUEtiapine (SEROQUEL) 25 mg tablet Take 1 tablet by mouth daily at bedtime. atorvastatin (LIPITOR) 20 mg tablet Take 1 tablet by mouth once daily. At bedtime No current facility-administered medications on file prior to visit. ROS: See HPI PFSH: See HPI VITAL SIGNS: 07/11/24 0757 BP: 136/84 Pulse: 78 Resp: 14 Weight: 94.3 kg (208 lb) Last 3 Encounter BP Readings: Date: BP: 07/11/2024 136/84 05/22/2024 126/78 05/13/2024 162/105 MENTAL STATUS EXAMINATION: Appearance: Casually dressed and groomed Behavior: Behaves appropriately during the encounter Social relatedness: Tangential Speech/Language: The patient demonstrates appropriate tone, prosody, dutch, phonetics, and syntax Mood: Anxious Affect: Full and tangential Orientation: Person, Place, Time and Situation Associations: Tangential. Noticed some difficulty comprehending complex information. Hallucinations: None Delusions: None Suicidal Ideation: No suicidal ideation, intent or plan. Homicidal Ideation: No homicidal (more content not included)... [facility] 07-11-2024 History of Presen t illness Narrative Images from the original note were not included. FOLLOW UP - PSYCHIATRIC PROGRESS NOTE PATIENT: Zofia Ragland DATE: July 11, 2024 Visit Type:In person All information is from Patient report except when noted. This evaluation is NOT intended for forensic, disability or child custody purposes. CC: Presenting today for follow up regarding psychiatric medication management. HPI: Treatment Plan from Last Visit on 05/13/2024: Increase Zoloft to 150 mg dose as it was beneficial and tolerable for the patient in the past. Start Seroquel to help with racing thoughts and sleep difficulties. May need to gradually increase dose as tolerated. Continue individual psychotherapy with Dr. Tasneem Mchugh. Today Zofia shares that she has some frustration about scheduling the sleep studies as she has ride issues to get to appointments that are farther from home. She continues to struggle with excessive daytime drowsiness. Has reviewed her concerns with her PCP. Has been referred to sleep medicine for evaluation of Narcolepsy. Reported significant cataplexy symptoms to PCP. Discussed the rationale for sleep medicine referral in detail with the patient. Has been able to notice improvement in anxiety with the increase in Zoloft. Feels that it has taken the edge off her anxiety. Continues to struggle with anxiety. Denies side effects from the Zoloft. In agreement to try a higher dose. Shares that she is tolerating Seroquel now at the 25 mg dose. Denies any side effects. Noticed some improvement in her racing thoughts. Still only able to sleep 2 to 3 hours in one Also reports struggles with carpal tunnel. Has struggled to get organized to get the EMG scheduled. Reviewed the orthopedic provider's note from February. Provided numbers for patient to call to schedule the EMG. Would like to reschedule her appointment with Dr. Mchugh. Discussed barriers to scheduling appointment as a faulty phone and difficulty remembering to call to schedule her various appointments. She continues to use marijuana. I take 2 to 3 hits a day to get me through the day and focus. Shares that she does not use it to get high. Accepting of the rationale to decrease and discontinue use as tolerated. No change in nicotine use (1 pack every 3 to 4 days). Drinks mountain dew (18 pack finished in 3 weeks). Interval Progress: Slightly improved PATIENT DATA: Generalized Anxiety Disorder Scale (JAVI-7) 04/30/2024 05/13/2024 JAVI - 7 SCORES Score 16 19 (0-4) minimal anxiety, (5-9) mild anxiety, (10-14) moderate anxiety, (15-21) severe anxiety Patient Health Questionnaire (PHQ-9) 04/30/2024 05/13/2024 PHQ-9 Score 20 17 (0-4) minimal depression, (5-9) mild depression, (10-14) moderate depression, (15-19) moderately severe depression, (20-27) severe depression PAST MEDICAL HISTORY 03/22/2012: Anxiety No date: Depression No date: Dysthymic disorder Comment: Depression (non-psychotic) 04/09/2012: Essential hypertension, benign No date: Unspecified chronic bronchitis (HCC) Comment: Chronic bronchitis PAST SURGICAL HISTORY 1975: ADENOIDECTOMY PRIMARY <AGE 13 Comment: Adenoidectomy 1994,2004: DELIVERY ONLY Comment: , low cervical 1995: DILATION & CURETTAGE DX&/THER NONOBSTETRIC Comment: Dilation & curettage 77: MYRINGOTOMY ASPIR&/EUSTACHIAN TUBE [facility] ANES Comment: Myringotomy/tubes No date: TONSILLECTOMY PRIMARY/SECONDARY <AGE 13 Comment: Tonsillectomy 2004: TUBAL LIGATION, ALLERGIES No Known Allergies Current Outpatient Medications on File Prior to Visit Medication Sig losartan-hydroCHLOROthiazide (HYZAAR) 50-12.5 mg per tablet take 1 tablet by mouth once daily. sertraline (ZOLOFT) 100 mg tablet Take 1.5 tablets by mouth once daily. QUEtiapine (SEROQUEL) 25 mg tablet Take 1 tablet by mouth daily at bedtime. atorvastatin (LIPITOR) 20 mg tablet Take 1 tablet by mouth once daily. At bedtime No current facility-administered medications on file prior to visit. ROS: See HPI PFSH: See HPI VITAL SIGNS: 07/11/24 0757 BP: 136/84 Pulse: 78 Resp: 14 Weight: 94.3 kg (208 lb) Last 3 Encounter BP Readings: Date: BP: 07/11/2024 136/84 05/22/2024 126/78 05/13/2024 162/105 MENTAL STATUS EXAMINATION: Appearance: Casually dressed and groomed Behavior: Behaves appropriately during the encounter Social relatedness: Tangential Speech/Language: The patient demonstrates appropriate tone, prosody, dutch, phonetics, and syntax Mood: Anxious Affect: Full and tangential Orientation: Person, Place, Time and Situation Associations: Tangential. Noticed some difficulty comprehending complex information. Hallucinations: None Delusions: None Suicidal Ideation: No suicidal ideation, intent or plan. Homicidal Ideation: No homicidal ideation, intent or plan. Insight: Appropriate Judgment: Appropriate DATA REVIEWED: Psychiatric scales, Electronic medical record, and Labs, and consult notes DIAGNOSIS: Javi (generalized anxiety disorder) (primary encounter diagnosis) Mood disorder (hcc) Marijuana use Nicotine use GAF: -60-51 Moderate symptoms or moderate difficulty in social, occupational or school functioning. TREATMENT PLAN: 1) Increase Zoloft to 200 mg dose total to help with anxiety symptoms. 2) Increase Seroquel to 50 mg at bedtime to help with racing thoughts and sleep difficulties. 3) Discussed reducing marijuana use due to its impact on brain health. Patient was accepting of the recommendation. 4) Schedule an appointment with Dr. Mchugh for therapy. 5) Schedule EMG for carpal tunnel evaluation. 6) Schedule sleep study as well as MRI for evaluation of sleep disorder. 7) Consider neuropsychiatric testing after sleep disorder is evaluated due to concerns of cognitive difficulties and executive functioning. MEDICATION CHANGES: See above Risks and benefits of the medication, including any black box warnings, were discussed with the patient. Patient is aware to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 requested by Samantha Rao APRN.CNP for an opinion regarding right wrist pain and numbness/tingling. My final recommendations will be communicated back to the requesting physician by way of shared Medical record or letter to requesting physician via US mail. The patient reports several complaints, notably pain localized to the volar, radial aspect of the wrist. She reports that the cyst here will enlarge and shrink. It is always painful but even more so when it is enlarged. She has noticed this for over 3 years. Additionally she has been dealing with numbness and tingling in the hand. Location: Right hand Severity: 8 on a scale of 0-10 Duration of symptoms: 3 years Date of injury n/a Symptoms have Worsened Previous treatment: [id number] splint, patient reports that the splint has worn out. Context worse with Activity/Motion and Gripping Occupation: Not currently employed Smoking status: Tobacco Use: .5 packs/day Types: Cigarettes REVIEW OF SYSTEMS Cardiovascular ROS:No history of chest pain, palpitation, orthopnea, cyanosis, pedal edema Neurologic ROS: Numbness and Tingling:No PAST MEDICAL HISTORY Past medical, surgical, family, and social histories have been reviewed and updated with the patient today and are located elsewhere in the medical record. Diabetes:No ALLERGIES ALLERGIES No Known Allergies PHYSICAL EXAMINATION Ht 147.3 cm (4' 10) Wt 93.4 kg (206 lb) LMP 02/12/2014 BMI 43.05 kg/m Body mass index is 43.05 kg/m . General Appearance Well appearing, alert, in no acute distress, well-hydrated, well nourished. Alert and oriented times: 3 Normal affect times: 3 Appears stated age and well nourished Gait and station:normal Right Upper Extremity Exam: Inspection shows a well-circumscribed cyst at the radial aspect of the wrist flexion crease consistent with a volar ganglion No wounds or lacerations. No surgical incisions noted Skin: WNL Tenderness to palpation: Profound tenderness with palpation, highly sensitive ROM: Wrist flexion, extension, pronation/supination within normal limits Full composite fist Instability: none Sensation: Intact to light touch median, radial, ulnar nerve distribution Atrophy: None Brisk capillary refill Special tests: Equivocal Tinel at the wrist Positive carpal tunnel compression test Equivocal Tinel at the elbow REVIEW OF STUDIES X-rays 03/07/24 3 views of the right hand show no fracture or dislocation. Joint spaces are well-maintained at the radiocarpal, intercarpal and digital articulations. No lytic or erosive lesions. ASSESSMENT/PLAN: 1. Right carpal tunnel syndrome - ICD9: 354.0, ICD10: G56.01 (primary diagnosis) - EMG(NEURO/NI) - [facility] WRIST EXTENSION CONTROL 2. Right hand pain - ICD9: 729.5, ICD10: M79.641 - FO WRIST EXTENSION CONTROL 3. Ganglion cyst of volar aspect of right wrist - ICD9: 727.41, ICD10: M67.431 - FO WRIST EXTENSION CONTROL I reviewed the diagnoses with the patient. We discussed both the carpal tunnel syndrome as well as the volar ganglion and reviewed treatment options for each. She was provided with a new splint to wear. We discussed injections versus surgery for at the carpal tunnel syndrome as well as the volar ganglion. She is leaning towards definitive surgical management. I recommended that we obtain electrodiagnostic testing to better evaluate this. Orders were placed. We will plan on following up after the EMG/NCS is complete. All of her questions were answered to her satisfaction. Ciaran Vidal MD Patient educated on treatment options for volar ganglion cyst, carpal tunnel syndrome Patient instructed to call the office with questions or concerns. Medical Decision Making: Problems: Moderate: 1+ chronic illnesses with change Data: Unique test result(s) reviewed: 1 Unique test(s) ordered: 1 Risk: Low: Low risk from testing/treatment Medical Decision Making Level: 3 - Low documented in this encounter [facility] 03-07-2024 Miscellaneous Notes March 07, 2024 PID: [id number] Zofia D. Dante [address] [place] [address] Dear Ms. Ragland, We are pleased to inform you that the results of your recent breast imaging exam on 03/06/2024 are normal. Early detection of cancer is very important. We also understand recommendations regarding breast cancer screening are controversial. Please discuss with your primary care provider which strategy is best for you and whether a mammogram is right for you. Your imaging studies and report will be kept on file at [facility] as part of your permanent medical record and are available for your continuing care. Thank you for allowing us to help in meeting your health care needs. Sincerely, Dr. Perez Interpreting Radiologist (Normal over 40) documented in this encounter [facility] 03-06-2024 History of Presen t illness Narrative Radiology Service Progress Note PATIENT NAME: Zofia Ragland DATE OF SERVICE: March 06, 2024 TIME: 11:11 AM PATIENT IDENTITY VERIFICATION COMPLETED USING TWO (2) IDENTIFIERS: Name and Date of confirmed by patient verbally. FALL SCREENING: Has the patient had 2 falls in the last year or 1 fall with injury or currently using an Ambulatory Assistive Device (Walker, Cane, Wheelchair, Crutches, etc.)? No PATIENT GENDER DATA: Female. status: : No status: NO. PATIENT RELEVANT IMPLANT DATA REVIEWED: Yes PATIENT PRESENTS WITH AN IMPLANTABLE OR ATTACHED MANAGER BENCH: No RADIOLOGY DEPARTMENT: General X-ray: Exam(s) Completed: Upper Extremity X-Ray(s): Hand, right PERIPHERAL IV DATA: Not applicable SIGNED BY: RT Patience(Jj) March 06, 2024 11:11 AM documented in this encounter [facility] 03-06-2024 Note HNO ID: [id number] Author: MC LOCO RT(R) Service: Radiology Author Type: Technologist Type: Progress Notes Filed: 03/06/2024 11:21 Note Text: Radiology Service Progress Note PATIENT NAME: Zofia Ragland DATE OF SERVICE: March 06, 2024 TIME: 11:11 AM PATIENT IDENTITY VERIFICATION COMPLETED USING TWO (2) IDENTIFIERS: Name and Date of confirmed by patient verbally. FALL SCREENING: Has the patient had 2 falls in the last year or 1 fall with injury or currently using an Ambulatory Assistive Device (Walker, Cane, Wheelchair, Crutches, etc.)? No PATIENT GENDER DATA: Female. status: : No status: NO. PATIENT RELEVANT IMPLANT DATA REVIEWED: Yes PATIENT PRESENTS WITH AN IMPLANTABLE OR ATTACHED MANAGER BENCH: No RADIOLOGY DEPARTMENT: General X-ray: Exam(s) Completed: Upper Extremity X-Ray(s): Hand, right PERIPHERAL IV DATA: Not applicable SIGNED BY: RT Patience(Jj) March 06, 2024 11:11 AM [facility] 03-06-2024 History of Presen t illness Narrative Radiology Service Progress Note PATIENT NAME: Zofia Ragland DATE OF SERVICE: March 06, 2024 TIME: 11:32 AM PATIENT IDENTITY VERIFICATION COMPLETED USING TWO (2) IDENTIFIERS: Name and Date of confirmed by patient verbally. FALL SCREENING: Has the patient had 2 falls in the last year or 1 fall with injury or currently using an Ambulatory Assistive Device (Walker, Cane, Wheelchair, Crutches, etc.)? No PATIENT GENDER DATA: Female. status: : No status: NO. PATIENT RELEVANT IMPLANT DATA REVIEWED: Not Applicable PATIENT PRESENTS WITH AN IMPLANTABLE OR ATTACHED MANAGER BENCH: No RADIOLOGY DEPARTMENT: Mammography PERIPHERAL IV DATA: Not applicable SIGNED BY: Vicky Zeng March 06, 2024 11:32 AM documented in this encounter [facility] 03-06-2024 Note HNO ID: [id number] Author: TITO ENRIQUEZ Mammo Tech Service: ? Author Type: Creping Machine Operator Helper Type: Progress Notes Filed: 03/06/2024 11:33 Note Text: Radiology Service Progress Note PATIENT NAME: Zofia Ragland DATE OF SERVICE: March 06, 2024 TIME: 11:32 AM PATIENT IDENTITY VERIFICATION COMPLETED USING TWO (2) IDENTIFIERS: Name and Date of confirmed by patient verbally. FALL SCREENING: Has the patient had 2 falls in the last year or 1 fall with injury or currently using an Ambulatory Assistive Device (Walker, Cane, Wheelchair, Crutches, etc.)? No PATIENT GENDER DATA: Female. status: : No status: NO. PATIENT RELEVANT IMPLANT DATA REVIEWED: Not Applicable PATIENT PRESENTS WITH AN IMPLANTABLE OR ATTACHED MANAGER BENCH: No RADIOLOGY DEPARTMENT: Mammography PERIPHERAL IV DATA: Not applicable SIGNED BY: Vicky Zneg March 06, 2024 11:32 AM [facility] 03-03-2024 Miscellaneous Notes Patient informed of results. Gay He MA ----- Message from Samantha Rao APRN.VENDING MACHINE COLLECTOR sent at 03/02/2024 7:54 PM EDT ----- ECG unremarkable. Occasional PVC otherwise normal. No interventions needed for this documented in this encounter [facility] 02-27-2024 Miscellaneous Notes Patient called in requesting to cancel today's appointment with Dr. Mchugh due to not having transportation. Patient has been rescheduled to 03/19 at 10:30am. documented in this encounter [facility] 02-25-2024 Note HNO ID: [id number] Author: KARIE HORN LPN Service: ? Author Type: LICENSED NURSE Type: Progress Notes Filed: 02/25/2024 09:59 Note Text: Patient presents for EKG per Samantha Rao CNP. Denies any problems at this time. Tolerated procedure well. Karie Horn LPN [facility] 02-25-2024 History of Presen t illness Narrative Patient presents for EKG per Samantha Rao CNP. Denies any problems at this time. Tolerated procedure well. Karie Horn LPN documented in this encounter [facility] 02-06-2024 History of Presen t illness Narrative This note was created using Vysrriter. Subjective Zofia Ragland is a 53 year old female here today for follow up on depression and HTN. She was seen 12/25/23 to establish care. She was noted to have elevated BP and was started on lisinopril 20 mg daily. She became very angry after everytime she took this medication and was then switched to losartan 50 mg daily. She also endorsed having both anxiety and depression. She was started on zoloft 50 mg daily she is tolerating this well. She does feel both anxiety and depression have improved but continue. She does feel an increase in her medication would be helpful. She admits to not crying as much. Denies thoughts of suicide. She has appt scheduled for counseling. From OV 12/25/23: Anxiety and depression: she was previously on zoloft., celexa, and ativan in the past. She reports it has been years since she has been on medication. Denies thoughts of suicide but doesn't care if she wakes up in am. She denies ever having counseling. She is not opposed to this. Reports depression is daily. She reports she sits and cry in her room all day. States she doesn't have anyone for support. She has her mom but she has her own problems and listens to her sisters problems. She does have 2 sons and an adopted niece. She reports her 18 yo son keeps her happy. ALLERGIES No Known Allergies Current Outpatient Medications Medication Sig Dispense Refill losartan (COZAAR) 50 mg tablet Take 1 tablet by mouth two times a day. 30 tablet 2 sertraline (ZOLOFT) 50 mg tablet Take 1 tablet by mouth once daily. 30 tablet 2 amoxicillin-clavulanate potassium (AUGMENTIN) 875-125 mg per tablet No current facility-administered medications for this visit. ACTIVE PROBLEM LIST Adjustment Disorder With Depressed Mood Anxiety Essential Hypertension, Benign Arm Contusion Foreign Body in Forearm Depression PAST MEDICAL HISTORY Diagnosis Date Anxiety 03/22/2012 Depression Dysthymic disorder Depression (non-psychotic) Essential hypertension, benign 04/09/2012 Unspecified chronic bronchitis (HCC) Chronic bronchitis PAST SURGICAL HISTORY Procedure Laterality Date ADENOIDECTOMY PRIMARY <AGE 13 1976 Adenoidectomy DELIVERY ONLY 1994,2004 , low cervical DILATION & CURETTAGE DX&/THER NONOBSTETRIC 1995 Dilation & curettage MYRINGOTOMY ASPIR&/EUSTACHIAN TUBE NFLTJ ANES 77 Myringotomy/tubes TONSILLECTOMY PRIMARY/SECONDARY <AGE 13 Tonsillectomy TUBAL LIGATION, 2004 Social History Tobacco Use Smoking status: Every Day Packs/day: .5 Types: Cigarettes Start date: 11/02/1997 Smokeless tobacco: Never Substance Use Topics Alcohol use: No Comment: rare Drug use: Yes Types: Marijuana Family History Problem Relation Age of Onset Thyroid Mother Hypertension Mother Allergies Mother Arthritis Mother Alcohol/Drug Father Heart Father 62 Hypertension Sister Heart disease Sister Obesity Sister Thyroid Sister Arthritis Sister Allergies Sister Fibromyalgia Sister Thyroid Sister Depression Sister Obesity Brother Heart Maternal Grandmother Stroke Maternal Grandmother Aneurysm Paternal Grandmother Emphysema Paternal Grandfather Heart Paternal Grandfather Genitourinary () Daughter Genetic Son GI Child Headache Maternal Aunt Hearing Loss Maternal Uncle Heart Paternal Aunt Hypertension Paternal Aunt Hypertension Paternal Uncle . Review of Systems Constitutional: Negative for activity change, appetite change, chills, diaphoresis, fatigue and fever. Respiratory: Negative for cough, shortness of breath and wheezing. Cardiovascular: Negative for chest pain, palpitations and leg swelling. Neurological: Negative for dizziness, numbness and headaches. Psychiatric/Behavioral: Positive for dysphoric mood and sleep disturbance. Negative for decreased concentration, self-injury and suicidal ideas. The patient is nervous/anxious. Objective BP 152/92 Pulse 102 Temp 36.8 C (98.2 F) (Oral) Resp 18 Ht 147.3 cm (4' 10) Wt 93.4 kg (206 lb) LMP 02/12/2014 SpO2 97% BMI 43.05 kg/m Physical Exam Vitals and nursing note reviewed. Constitutional: General: She is not in acute distress. Appearance: She is obese. She is not ill-appearing. HENT: Head: Normocephalic and atraumatic. Cardiovascular: Rate and Rhythm: Normal rate and regular rhythm. Pulses: Normal pulses. Heart sounds: No murmur heard. Pulmonary: Effort: Pulmonary effort is normal. Breath sounds: Normal breath sounds. Skin: General: Skin is warm and dry. Neurological: Mental Status: She is alert and oriented to person, place, and time. Psychiatric: Attention and Perception: Attention and perception normal. Mood and Affect: Affect normal. Mood is anxious. Speech: Speech normal. Behavior: Behavior normal. Behavior is cooperative. Thought Content: Thought content normal. Cognition and Memory: Cognition and memory normal. Judgment: Judgment normal. Latest Ref [facility] 01/24/2024 Protein, Total 6.3 - 8.0 g/dL 7.2 Albumin 3.9 - 4.9 g/dL 4.3 Calcium 8.5 - 10.2 mg/dL 9.6 Bilirubin, Total 0.2 - 1.3 mg/dL 0.3 Alkaline Phosphatase 34 - 123 U/L 113 AST 13 - 35 U/L 17 ALT 7 - 38 U/L 19 Glucose 74 - 99 mg/dL 85 BUN 7 - 21 mg/dL 20 Creatinine 0.58 - 0.96 mg/dL 0.62 Sodium 136 - 144 mmol/L 142 Potassium 3.7 - 5.1 mmol/L 4.3 Chloride 97 - 105 mmol/L 103 CO2 22 - 30 mmol/L 25 Anion Gap 9 - 18 mmol/L 14 eGFR >=60 mL/min/1.73m 107 WBC 3.70 - 11.00 k/uL 10.43 RBC 3.90 - 5.20 m/uL 5.49 (H) Hemoglobin 11.5 - 15.5 g/dL 14.3 Hematocrit 36.0 - 46.0 % 47.2 (H) MCV 80.0 - 100.0 fL 86.0 MCH 26.0 - 34.0 pg 26.0 MCHC 30.5 - 36.0 g/dL 30.3 (L) RDW-CV 11.5 - 15.0 % 14.3 Platelet Count 150 - 400 k/uL 417 (H) MPV 9.0 - 12.7 fL 11.4 Absolute nRBC <0.01 k/uL <0.01 Cholesterol, Total <200 mg/dL 217 (H) Triglyceride <150 mg/dL 60 HDL Cholesterol >39 mg/dL 54 Non HDL Cholesterol <130 mg/dL 163 (H) Fasting Time hrs 18 VLDL Cholesterol <30 mg/dL 12 TC:HDL Ratio <5.10 4.02 LDL Cholesterol <100 mg/dL 151 (H) LDL:HDL Ratio <2.54 2.80 (H) TSH 0.270 - 4.200 mIU/L 2.080 Legend: (H) High (L) Low ASSESSMENT/PLAN: 1. Essential hypertension, benign - ICD9: 401.1, ICD10: I10 (primary diagnosis) - Improving control - will add HCTZ 12.5 mg to her losartan 50 mg daily - Recommend home blood pressure monitoring, to bring results to next visit - Encouraged sodium restriction, DASH or Mediterranean diet - Recommend regular aerobic exercise - Discussed need for and benefit of weight loss. BMI 43.05 kg/(m^2) - Reviewed risks of hypertension and principles of treatment - LOSARTAN 50 MG-HYDROCHLOROTHIAZIDE 12.5 MG TABLET 2. Depression, unspecified depression type - ICD9: 311, ICD10: F32.A - Chronic, improved since starting medication but continues with significant symptoms of depression. Will increase zoloft to 100 mg daily. - we were able to get patient scheduled with [facility] provider here in our office today for counseling. - SERTRALINE 100 MG TABLET 3. Anxiety - ICD9: 300.00, ICD10: F41.9 - Chronic, not controlled increase zoloft 100 mg daily - SERTRALINE 100 MG TABLET 4. Mixed hyperlipidemia - ICD9: 272.2, ICD10: E78.2 - New diagnosis - Start atorvastatin (Lipitor) - Counseled on healthy diet and regular exercise - Discussed need for and benefit of weight loss. BMI 43.05 kg/(m^2) - ATORVASTATIN 20 MG TABLET Samantha Rao APRN.CNP documented in this encounter [facility] 02-05-2024 Miscellaneous Notes Called pt let her know the results pt is interested in starting statin please send to [facility] [place] Reminder placed for 3 months for blood count Yissel Winters MA ----- Message from Samantha Rao APRN.CNP sent at 02/03/2024 1:12 PM EDT ----- TC and LDL bad chol are both elevated she is at a 11% risk for a major CV event over the next 10 yrs. I would recommend starting a statin to lower her risk of heart attack and stroke. CMP and tsh wnl CBC slight increase in her rbc count. Recommend rechecking in 3 months. documented in this encounter [facility] 01-15-2024 Miscellaneous Notes Agree she will have to follow up with dentist Pt called stating that she was seen on 12/25/23 and continues to have dental pain and has not been able to make it to the dentist informed pt were unable to treat dental and she will have to f/u with a dentist Yissel Winters MA documented in this encounter [facility] 01-08-2024 Miscellaneous Notes Called pt let her know the information she has an apt for February 05 set up Yissel Winters MA She needs to follow up in 4 wks for BP recheck I sent in losartan for her Pt called stating the Lisinopril 20 mg is making her angry. She stated 25 minutes after taking it she gets angry. She would like something new sent in Yissel Winters MA documented in this encounter [facility] 12-24-2023 Hospital Discharg e instructions Patient Education 12/24/2023 13:11:35 Otitis Media, Antibiotic Treatment (Adult) Middle Ear Infection (Adult) You have an infection of the middle ear, the space behind the eardrum. This is also called acute otitis media (AOM). Sometimes it is caused by the common cold. This is because congestion can block the internal passage (eustachian tube) that drains fluid from the middle ear. When the middle ear fills with fluid, bacteria can grow there and cause an infection. Oral antibiotics are used to treat this illness, not ear drops. Symptoms usually start to improve within 1 to 2 days of treatment. Home care The following are general care guidelines: Finish all of the antibiotic medicine given, even though you may feel better after the first few days. You may use nwxc-ftg-wuuvqop medicine, such as acetaminophen or ibuprofen, to control pain and fever, unless something else was prescribed. If you have chronic liver or kidney disease or have ever had a stomach ulcer or gastrointestinal bleeding, talk with your healthcare provider before using these medicines. Do not give aspirin to anyone under 18 years of age who has a fever. It may cause severe illness or . Follow-up care Follow up with your healthcare provider, or as advised, in 2 weeks if all symptoms have not gotten better, or if hearing doesn't go back to normal within 1 month. When to seek medical advice Call your healthcare provider right away if any of these occur: Ear pain gets worse or does not improve after 3 days of treatment Unusual drowsiness or confusion Neck pain, stiff neck, or headache Fluid or blood draining from the ear canal Fever of 100.4 F (38 C) or as advised Seizure [id number] The [employer]. [address] [place] [address]. All rights reserved. This information is not intended as a substitute for professional medical care. Always follow your healthcare professional's instructions. Follow Up Care 12/24/2023 12:20:51 With:Follow up with primary care provider Address:Unknown When:2-4 days [facility] 12-24-2023 Note Discharge Instructions Thank you for allowing [facility] to assist you with your healthcare needs. The following is important discharge information regarding your hospital visit. Diagnosis from Today's Visit Ear pain Otitis media of right ear What to Do Next Instructions from Your Care Team No qualifying data available. Post Acute Orders No qualifying data available. You Need to Schedule the Following Appointments Follow Up with Follow up with primary care provider When Within 2-4 days Allergies NKA Medications Please ask your primary doctor or pharmacist before taking any other medication not listed, including over the counter drugs, herbal medications, vitamins and or supplements as they may interact with your home medications. What How Much When Instructions Last Dose New amoxicillin-clavulanate (amoxicillin-clavulanate 875 mg-125 mg oral tablet) 1 tab(s) by mouth Every 12 hours Duration: 10 Days Pickup at [facility] New naproxen (naproxen 500 mg oral tablet) 1 tab(s) by mouth Two (2) times a day as needed for Pain Duration: 10 Days Pickup at [facility] Pharmacy Information [facility]: [address] [place], [place] [id number] [phone] Please take this list to your next doctor s visit. Bring all medications you take, including over the counter medications, herbals and other supplements with you to your doctor s visit. Patients and families are reminded to discard old lists and to update any records with all medication providers or retail pharmacies. Education Materials Middle Ear Infection (Adult) You have an infection of the middle ear, the space behind the eardrum. This is also called acute otitis media (AOM). Sometimes it is caused by the common cold. This is because congestion can block the internal passage (eustachian tube) that drains fluid from the middle ear. When the middle ear fills with fluid, bacteria can grow there and cause an infection. Oral antibiotics are used to treat this illness, not ear drops. Symptoms usually start to improve within 1 to 2 days of treatment. Home care The following are general care guidelines: Finish all of the antibiotic medicine given, even though you may feel better after the first few days. You may use pich-xje-ajtzlqt medicine, such as acetaminophen or ibuprofen, to control pain and fever, unless something else was prescribed. If you have chronic liver or kidney disease or have ever had a stomach ulcer or gastrointestinal bleeding, talk with your healthcare provider before using these medicines. Do not give aspirin to anyone under 18 years of age who has a fever. It may cause severe illness or . Follow-up care Follow up with your healthcare provider, or as advised, in 2 weeks if all symptoms have not gotten better, or if hearing doesn't go back to normal within 1 month. When to seek medical advice Call your healthcare provider right away if any of these occur: Ear pain gets worse or does not improve after 3 days of treatment Unusual drowsiness or confusion Neck pain, stiff neck, or headache Fluid or blood draining from the ear canal Fever of 100.4 F (38 C) or as advised Seizure [id number] [employer] [address] [place], [place] [id number]. All rights reserved. This information is not intended as a substitute for professional medical care. Always follow your healthcare professional's instructions. Additional Information VACCINATE! IT SAVES LIVES! Members of the community who have not yet received the COVID-19 vaccine and would like to receive it can visit one of [facility] vaccine clinics. There are many vaccine clinic locations within the [facility]. For locations and available times, please visit [email or web address] [email or web address] It is important to note that some COVID mobile vaccine clinics are held outdoors and may be canceled in rainy or stormy conditions. To learn more about pediatric vaccinations (ages 5-11), we invite you to visit the [facility] webpage. https://www.[email or web address]/p ages/2100-Vkzbz-Eqkkuryhdsp-Freq euzbrx-Cqrpl-Auhdyrnpo.html To learn more about the COVID-19 vaccine, we invite you to visit the CDC website for a list of frequently asked questions. https://www.cdc.gov/coronavirus/ 2019-ncov/vaccines/faq.html [facility] Patient Portal Access Instructions: Stay connected with your healthcare team and access your personal medical information anytime with the [facility] Patient Portal. If you would like a full copy of your medical records please contact the [facility] Medical Records Department Sunday through Sunday between 8a.m. and 4:30p.m. Please follow the directions below to access the portal: 1.Access the email account you provided upon registration to the [facility].2.Look for an invitation email from [facility].3.Open the email and access the invitation link: Accept Invitation to [facility].Fill in the required lindsay to create your account. Sign into [email or web address] with your username and password that you created in the above steps to stay up to date. You can then view a summary of results, a summary of your visits, and the ability to download your summaries to your computer or send the information securely to a physician. Remember that your healthcare information is confidential, so carefully consider who you will allow to register on the [facility] Patient Portal for access to your information. You can also access the [facility] Patient Portal on the [employer] hardik. Simply click on Health Records under Health Data and then click on the [employer] logo. HOW TO SAFELY DISPOSE OF PRESCRIPTION MEDICATIONS Please use one of the following methods to safely dispose of your unused medications. 1.Use a drug disposal kit: the drug disposal pouch allows you to safely discard your old and unused drugs. Ask your nurse to give you one when you are discharged.2.Visit a local take-back location: Many local pharmacies and police departments have programs that collect old and unwanted prescription drugs. Call your local pharmacy or go to http://[employer]imate Software.Techlicious/8C4Fh7r to find one close to you.3.Make use of household items: Use cat litter or old coffee grounds to dispose medications if other options are not available. Mix your drugs with these household products, seal them in an airtight container and throw it into the garbage. Call [facility]: [phone] to be sure your drugs can be disposed of in this way. Some medicines may require a different approach.4.Never flush your medications down the toilet. IF YOU HAVE BEEN PRESCRIBED AN OPIOIDS FOR PAIN If you have been prescribed an opioid (such as hydrocodone, oxycodone or morphine), it is critical to understand the possible side effects and risks of opioid pain medications. Even when taken as directed, opioids can have several side effects including: Tolerance, meaning you might need to take more of a medication for the same pain relief. Nausea, vomiting and/or constipation. Sleepiness, dizziness, dry mouth, confusion, depression or itching. Physical dependence, meaning you have withdrawal symptoms when a medication is stopped ? this can develop within a few days. KNOW YOUR RESPONSIBILITIES It is important to know exactly how much and how often to take the opioid pain medications you are prescribed. Never take opioids in higher amounts or more often than prescribed. Do not combine opioids with alcohol or other drugs that cause drowsiness, such as benzodiazepines, also known as benzos, including diazepam and alprazolam, muscle relaxants or sleep aids. Never sell or share prescription opioids. This is illegal. Store opioids in a secure place and out of reach of others (including children, family, friends and visitors). The last page(s) of this document has been signed and retained as a CHART COPY Signatures Patient Education Materials Otitis Media, Antibiotic Treatment (Adult) Medication Leaflets My discharge plan and instructions have been reviewed and explained to me and I,RAGLAND, ZOFIA understand my current condition and have read and understand these discharge instructions. I have received a written copy of the plan/instructions. If I have questions, I am aware that I should contact my doctor. Patient/Electromechanical Technician Signature: Date/Time: Relationship to Patient: Witness Name/Signature: Date/Time: [facility] Evaluation + Plan note No data available for this section [facility] Evaluation note Diagnosis Essential hypertension, benign- Primary [facility] Moderate episode of recurrent major depressive disorder (HCC)- Primary JAVI (generalized anxiety disorder) Generalized anxiety disorder [facility] Diagnosis Essential hypertension, benign- Primary Depression, unspecified depression type Anxiety Anxiety state, unspecified Mixed hyperlipidemia [facility] Diagnosis Essential hypertension, benign Palpitations [facility] Diagnosis Right hand pain- Primary Pain in limb [facility] Diagnosis Encounter for screening mammogram for malignant neoplasm of breast Other screening mammogram [facility] Diagnosis Right hand pain Pain in limb [facility] Diagnosis Right carpal tunnel syndrome- Primary Carpal tunnel syndrome Right hand pain Pain in limb Ganglion cyst of volar aspect of right wrist [facility] Diagnosis APPOINTMENT CANCELLED- Primary [facility] Diagnosis Encounter for gynecological examination (general) (routine) without abnormal findings- Primary Screening for cervical cancer Screening for malignant neoplasm of the cervix Encounter for screening for human papillomavirus (HPV) Special screening examination for human papillomavirus (HPV) Pap smear for cervical cancer screening Screening for malignant neoplasm of the cervix Encounter for screening mammogram for breast cancer Screen for STD (sexually transmitted disease) Screening examination for venereal disease [facility] Diagnosis Moderate episode of recurrent major depressive disorder (HCC)- Primary JAVI (generalized anxiety disorder) Generalized anxiety disorder [facility] Diagnosis Essential hypertension, benign- Primary [facility] Diagnosis JAVI (generalized anxiety disorder)- Primary Generalized anxiety disorder Mood disorder (HCC) Unspecified episodic mood disorder Marijuana use Cannabis abuse, unspecified Nicotine use [facility]* Diagnosis Cataplexy- Primary Narcolepsy with cataplexy Daytime sleepiness Dysphasia Other speech disturbance Muscle weakness-general Muscle weakness (generalized) [facility]* Diagnosis Essential hypertension, benign documented in this encounter [facility] note* Diagnosis JAVI (generalized anxiety disorder)- Primary Generalized anxiety disorder Mood disorder (HCC) Unspecified episodic mood disorder Marijuana use Cannabis abuse, unspecified Nicotine use [facility]* Diagnosis Mixed hyperlipidemia [facility]* Diagnosis Cataplexy- Primary Narcolepsy with cataplexy Dysphasia Other speech disturbance [facility]* Diagnosis Disability examination- Primary Issue of medical certificate for disability examination documented in this encounter [facility] note* Diagnosis Encounter for screening mammogram for breast cancer documented in this encounter [facility] for referral (narrative)* Diagnostic Procedure Only (Routine) - Pending Review Specialty Diagnoses / Procedures Referred By Lluvia schneider Referred To Contact XR IMAGING Diagnoses Right hand pain Procedures XR HAND GENERAL 3V PA/LAT/OBL RIGHT RADEX HAND MINIMUM 3 VIEWS Sujit Thomason PA-C [address] [facility] [address] [place] [address] [place] [id number] Referral ID Status Reason Start Date Expiration Date Visits Requested Visits Authorized [id number] Pending Review Auto-Generat ed Referral 03/04/2024 04/03/2025 1 1 [facility] for referral (narrative)* Outpatient Procedure (Routine) - Pending Review Specialty Diagnoses / Procedures Referred By Lluvia schneider Referred To Contact [facility] Diagnoses Right carpal tunnel syndrome Procedures EMG(NEURO/NI) NERVE CONDUCTION STUDIES 9-10 STUDIES Ciaran Vidal MD [address] [place] [address] [facility] [address] [place] [address] Referral ID Status Reason Start Date Expiration Date Visits Requested Visits Authorized [id number] Pending Review Auto-Generat ed Referral 03/07/2024 03/07/2025 1 1 [facility] for referral (narrative)* Diagnostic Procedure Only (Routine) - Authorized Specialty Diagnoses / Procedures Referred By Contac t Referred To Contact BR IMAGING Diagnoses Encounter for screening mammogram for breast cancer Procedures ROSY SCREENING W NELDA SCREENING DIGITAL BREAST TOMOSYNTHESIS BI SCREENING MAMMOGRAPHY BI 2-VIEW BREAST INC Mily Glynn APRN.VENDING MACHINE COLLECTOR [address] [place] [address] [facility] [address] [place] [address] Referral ID Status Reason Start Date Expiration Date Visits Requested Visits Authorized [id number] Authorized Auto-Generat ed Referral 03/27/2024 04/26/2025 1 1 [facility] for referral (narrative)* Diagnostic Procedure Only (Routine) - Pending Review Specialty Diagnoses / Procedures Referred By Contac t Referred To Contact [facility] Diagnoses Cataplexy Daytime sleepiness Procedures MULTIPLE SLEEP LATENCY TEST BOAT RENTAL CLERK SLEEP LATENCY/MAINT OF WAKEFULNESS TSTG Samantha Rao APRN.VENDING MACHINE COLLECTOR [address] [place] [address] [facility] [address] [place] [address] Referral ID Status Reason Start Date Expiration Date Visits Requested Visits Authorized [id number] Pending Review Auto-Generat ed Referral 05/22/2024 05/22/2025 1 1 * MRI/CT (Routine) - Pending Review Specialty Diagnoses / Procedures Referred By Contac t Referred To Contact MR IMAGING Diagnoses Dysphasia Muscle weakness-general Procedures MRI BRAIN WO/W IVCON MRI BRAIN BRAIN STEM W/O W/CONTRAST MATERIAL Samantha Rao APRN.VENDING MACHINE COLLECTOR [address] [place] [address] [place] [address] Referral ID Status Reason Start Date Expiration Date Visits Requested Visits Authorized [id number] Pending Review Auto-Generat ed Referral 05/22/2024 06/21/2025 1 1 * Transition of Care (Routine) - Ref Not Required Specialty Diagnoses / Procedures Referred By Lluvia t Referred To Contact Sleep Medicine / [facility]PART[facility] Diagnoses Cataplexy Daytime sleepiness Procedures CONSULT TO SLEEP MEDICINE - ADULT Samantha Rao, ECOMMERCE MARKETING SPECIALIST.VENDING MACHINE COLLECTOR [address] [place] [address] [facility] [address] Referral ID Status Reason Start Date Expiration Date Visits Requested Visits Authorized [id number] Ref Not Required PCP Requested Referral 05/22/2024 05/22/2025 1 1 [facility] for visit Narrative* Diagnostic Procedure Only (Routine) - Closed Specialty Diagnoses / Procedures Referred By Lluvia schneider Referred To Contact [facility] Diagnoses Encounter for screening mammogram for malignant neoplasm of breast Procedures ROSY SCREENING SCREENING MAMMOGRAPHY BI 2-VIEW BREAST INC CAD Samantha Rao, ECOMMERCE MARKETING SPECIALIST.VENDING MACHINE COLLECTOR [address] [place] [address] [facility] [address] [place] [address] Referral ID Status Reason Start Date Expiration Date V isits Requested Visits Authorized [id number] Closed Auto-Generate d Referral 12/25/2023 01/23/2025 1 1 [facility] for visit Narrative* Diagnostic Procedure Only (Routine) - Closed Specialty Diagnoses / Procedures Referred By Lluvia t Referred To Contact XR IMAGING Diagnoses Right hand pain Procedures XR HAND GENERAL 3V PA/LAT/OBL RIGHT RADEX HAND MINIMUM 3 VIEWS Sujit Thomason, PA-C [address] [place] [address] [place] [address] Referral ID Status Reason Start Date Expiration Date V isits Requested Visits Authorized [id number] Closed Auto-Generate d Referral 03/04/2024 04/03/2025 1 1 [facility] Reason for Referral Specialty Diagnoses / Procedures Referred By Contac t Referred To Contact [facility] Diagnoses Disability examination Procedures CONSULT TO PHYSICAL THERAPY Samantha Rao, ECOMMERCE MARKETING SPECIALIST.VENDING MACHINE COLLECTOR [address] [place] [address] [place] [address] Referral ID Status Reason Start Date Expiration Date Visits Requested Visits Authorized [id number] Ref Not Required PCP Requested Referral 10/06/2025 1 1 Specialty Diagnoses / Procedures Referred By Contac t Referred To Contact Neurology / [facility]PART[facility] Diagnoses Cataplexy Dysphasia Procedures CONSULT TO NEUROLOGY OFFICE/OUTPATIENT [facility] 60 MINUTES Samantha Rao, ECOMMERCE MARKETING SPECIALIST.VENDING MACHINE COLLECTOR [address] [place] [address] [place] [address] Referral ID Status Reason Start Date Expiration Date Visits Requested Visits Authorized [id number] Authorized PCP Requested Referral 08/06/2024 08/06/2025 1 1 Summary Purpose Family History No Family History Records Found Advance Directives No Advanced Directives Records FoundNo Advanced Directives Records Found Additional Source Comments Source Comments (unrecognize d section and content) In the event this informatio n is protected by the Federal Confidentiality of Alcohol and Drug Abuse Patient Records regulations: The Federal rules restrict any use of the information to criminally investigate or prosecute any alcohol or drug abuse [facility] the event this information is protected by the Federal Confidentiality of Alcohol and Drug Abuse Patient Records regulations: The Federal rules restrict any use of the information to criminally investigate or prosecute any alcohol or drug abuse patient.[facility] the event this information is protected by the Federal Confidentiality of Alcohol and Drug Abuse Patient Records regulations: The Federal rules restrict any use of the information to criminally investigate or prosecute any alcohol or drug abuse patient.[facility] the event this information is protected by the Federal Confidentiality of Alcohol and Drug Abuse Patient Records regulations: The Federal rules restrict any use of the information to criminally investigate or prosecute any alcohol or drug abuse patient.[facility] HospitalIn the event this information is protected by the Federal Confidentiality of Alcohol and Drug Abuse Patient Records regulations: The Federal rules restrict any use of the information to criminally investigate or prosecute any alcohol or drug abuse patient.[facility] HospitalIn the event this information is protected by the Federal Confidentiality of Alcohol and Drug Abuse Patient Records regulations: The Federal rules restrict any use of the information to criminally investigate or prosecute any alcohol or drug abuse patient.[facility] HospitalIn the event this information is protected by the Federal Confidentiality of Alcohol and Drug Abuse Patient Records regulations: The Federal rules restrict any use of the information to criminally investigate or prosecute any alcohol or drug abuse patient.[facility] HospitalIn the event this information is protected by the Federal Confidentiality of Alcohol and Drug Abuse Patient Records regulations: The Federal rules restrict any use of the information to criminally investigate or prosecute any alcohol or drug abuse patient.[facility] HospitalIn the event this information is protected by the Federal Confidentiality of Alcohol and Drug Abuse Patient Records regulations: The Federal rules restrict any use of the information to criminally investigate or prosecute any alcohol or drug abuse patient.[facility] HospitalIn the event this information is protected by the Federal Confidentiality of Alcohol and Drug Abuse Patient Records regulations: The Federal rules restrict any use of the information to criminally investigate or prosecute any alcohol or drug abuse patient.[facility] HospitalIn the event this information is protected by the Federal Confidentiality of Alcohol and Drug Abuse Patient Records regulations: The Federal rules restrict any use of the information to criminally investigate or prosecute any alcohol or drug abuse patient.[facility] HospitalIn the event this information is protected by the Federal Confidentiality of Alcohol and Drug Abuse Patient Records regulations: The Federal rules restrict any use of the information to criminally investigate or prosecute any alcohol or drug abuse patient.[facility] HospitalIn the event this information is protected by the Federal Confidentiality of Alcohol and Drug Abuse Patient Records regulations: The Federal rules restrict any use of the information to criminally investigate or prosecute any alcohol or drug abuse patient.[facility] HospitalIn the event this information is protected by the Federal Confidentiality of Alcohol and Drug Abuse Patient Records regulations: The Federal rules restrict any use of the information to criminally investigate or prosecute any alcohol or drug abuse patient.[facility] HospitalIn the event this information is protected by the Federal Confidentiality of Alcohol and Drug Abuse Patient Records regulations: The Federal rules restrict any use of the information to criminally investigate or prosecute any alcohol or drug abuse patient.[facility] HospitalIn the event this information is protected by the Federal Confidentiality of Alcohol and Drug Abuse Patient Records regulations: The Federal rules restrict any use of the information to criminally investigate or prosecute any alcohol or drug abuse patient.[facility] HospitalIn the event this information is protected by the Federal Confidentiality of Alcohol and Drug Abuse Patient Records regulations: The Federal rules restrict any use of the information to criminally investigate or prosecute any alcohol or drug abuse patient.[facility] HospitalIn the event this information is protected by the Federal Confidentiality of Alcohol and Drug Abuse Patient Records regulations: The Federal rules restrict any use of the information to criminally investigate or prosecute any alcohol or drug abuse patient.[facility] HospitalIn the event this information is protected by the Federal Confidentiality of Alcohol and Drug Abuse Patient Records regulations: The Federal rules restrict any use of the information to criminally investigate or prosecute any alcohol or drug abuse patient.[facility] HospitalIn the event this information is protected by the Federal Confidentiality of Alcohol and Drug Abuse Patient Records regulations: The Federal rules restrict any use of the information to criminally investigate or prosecute any alcohol or drug abuse patient.[facility] HospitalIn the event this information is protected by the Federal Confidentiality of Alcohol and Drug Abuse Patient Records regulations: The Federal rules restrict any use of the information to criminally investigate or prosecute any alcohol or drug abuse patient.[facility] HospitalIn the event this information is protected by the Federal Confidentiality of Alcohol and Drug Abuse Patient Records regulations: The Federal rules restrict any use of the information to criminally investigate or prosecute any alcohol or drug abuse patient.[facility] HospitalIn the event this information is protected by the Federal Confidentiality of Alcohol and Drug Abuse Patient Records regulations: The Federal rules restrict any use of the information to criminally investigate or prosecute any alcohol or drug abuse patient.[facility] HospitalIn the event this information is protected by the Federal Confidentiality of Alcohol and Drug Abuse Patient Records regulations: The Federal rules restrict any use of the information to criminally investigate or prosecute any alcohol or drug abuse patient.[facility] HospitalIn the event this information is protected by the Federal Confidentiality of Alcohol and Drug Abuse Patient Records regulations: The Federal rules restrict any use of the information to criminally investigate or prosecute any alcohol or drug abuse patient.[facility] HospitalIn the event this information is protected by the Federal Confidentiality of Alcohol and Drug Abuse Patient Records regulations: The Federal rules restrict any use of the information to criminally investigate or prosecute any alcohol or drug abuse patient.[facility] HospitalIn the event this information is protected by the Federal Confidentiality of Alcohol and Drug Abuse Patient Records regulations: The Federal rules restrict any use of the information to criminally investigate or prosecute any alcohol or drug abuse patient.[facility] HospitalIn the event this information is protected by the Federal Confidentiality of Alcohol and Drug Abuse Patient Records regulations: The Federal rules restrict any use of the information to criminally investigate or prosecute any alcohol or drug abuse patient.[facility] HospitalIn the event this information is protected by the Federal Confidentiality of Alcohol and Drug Abuse Patient Records regulations: The Federal rules restrict any use of the information to criminally investigate or prosecute any alcohol or drug abuse patient.[facility] HospitalIn the event this information is protected by the Federal Confidentiality of Alcohol and Drug Abuse Patient Records regulations: The Federal rules restrict any use of the information to criminally investigate or prosecute any alcohol or drug abuse patient.[facility] HospitalIn the event this information is protected by the Federal Confidentiality of Alcohol and Drug Abuse Patient Records regulations: The Federal rules restrict any use of the information to criminally investigate or prosecute any alcohol or drug abuse patient.[facility] HospitalIn the event this information is protected by the Federal Confidentiality of Alcohol and Drug Abuse Patient Records regulations: The Federal rules restrict any use of the information to criminally investigate or prosecute any alcohol or drug abuse patient.[facility] HospitalIn the event this information is protected by the Federal Confidentiality of Alcohol and Drug Abuse Patient Records regulations: The Federal rules restrict any use of the information to criminally investigate or prosecute any alcohol or drug abuse patient.[facility] HospitalIn the event this information is protected by the Federal Confidentiality of Alcohol and Drug Abuse Patient Records regulations: The Federal rules restrict any use of the information to criminally investigate or prosecute any alcohol or drug abuse patient.[facility] Reason for Visit (unrecogniz ed section and content) Reason Comments New Patient Evaluation Specialty Diagnoses / Procedures Referred By Contac t Referred To Contact Psychiatry / [facility] DEPARTMENT Diagnoses Depression, unspecified depression type Anxiety Procedures CONSULT TO PSYCHIATRY OFFICE/OUTPATIENT NEW HIGH MDM 60 MINUTES Samantha Rao APRN.VENDING MACHINE COLLECTOR [address] [place] [address] [place] [address] Referral ID Status Reason Start Date Expiration Date Visits Requested Visits Authorized [id number] Pending Review PCP Requested Referral 12/25/2023 12/24/2024 1 1 Reason Comments Patient Question Reason Comments Results Reason Comments Anxiety Depression Reason Comments EKG Specialty Diagnoses / Procedures Referred By Contac t Referred [facility] Diagnoses Essential hypertension, benign Palpitations Procedures ECG COMPLETE ECG ROUTINE ECG W/LEAST 12 LDS W/I&R Samantha Rao APRN.VENDING MACHINE COLLECTOR [address] [place] [address] [facility] [address] [place] [address] Referral ID Status Reason Start Date Expiration Date V isits Requested Visits Authorized [id number] Closed Auto-Generate d Referral 12/25/2023 12/24/2024 1 1 Reason Comments Appointment Reason Comments New Specialty Diagnoses / Procedures Referred By Contac t Referred To Contact Orthopedics Diagnoses Right hand pain Procedures CONSULT TO ORTHOPAEDICS OFFICE/OUTPATIENT [facility] 60 MINUTES Samantha Rao, ECOMMERCE MARKETING SPECIALIST.VENDING MACHINE COLLECTOR [address] [place] [address] Ciaran Vidal MD [address] [address] Referral ID Status Reason Start Date Expiration Date V isits Requested Visits Authorized [id number] Closed PCP Requested Referral 12/25/2023 12/24/2024 1 1 Reason Comments Appointment Rescheduled Reason Comments Missed Appointment 1st no show in 365 d ays (1st letter sent) Reason Comments Yearly Exam Specialty Diagnoses / Procedures Referred By Contac t Referred To Contact Digital Technician / [facility] DEPARTMENT Diagnoses Screening for cervical cancer Procedures CONSULT TO SENIOR RD ENGINEER OFFICE/OUTPATIENT [facility] 60 MINUTES Samantha Rao, ECOMMERCE MARKETING SPECIALIST.VENDING MACHINE COLLECTOR [address] [place] [address] [place] [address] Referral ID Status Reason Start Date Expiration Date V isits Requested Visits Authorized [id number] Closed PCP Requested Referral Auto-Generated Referral 12/25/2023 12/24/2024 1 1 Reason Comments Orders Reason Comments Follow Up Tests Results Pap and mammogra m results Reason Comments Refill Request Reason Comments Follow Up Anxiety/mood disorde r Reason Comments Appointment Called to schedule f ollow up appointment, lvm Reason Comments Denial: 94166 MRI BRAIN WO/W IVCON Reason Comments Appointment Cancelled Specialty Diagnoses / Procedures Referred By Contac t Referred To Contact Psychiatry / ADULT PSYCHIATRY Diagnoses follow up 2 months Procedures EST PSYC ADULT Audrey Sanchez, ECOMMERCE MARKETING SPECIALIST.VENDING MACHINE COLLECTOR [address] [place] [address] Audrey Sanchez, ECOMMERCE MARKETING SPECIALIST.VENDING MACHINE COLLECTOR [address] [place] [address] Referral ID Status Reason Start Date Expiration Date V isits Requested Visits Authorized [id number] New Request 09/09/2024 12/08/2024 1 1 Reason Comments Appointment Appointment availmarco e at 1:30 pm today and did she want to schedule Reason Comments Appointment #4 No Show Care Teams (unrecognized sec tion and content) Nursing Technician Relationship Specialty Start Date End Date Samantha Rao, ECOMMERCE MARKETING SPECIALIST.VENDING MACHINE COLLECTOR [address] [place] [address] PCP - General Internal Medicine 12/25/23 INFORMATION SOURCE (unrecogn ized section and content) DATE CREATED AUTHOR 09/11/2024 [facility] DATE CREATED AUTHOR 'S ORGANIZ ATION 05/23/2025 [facility] FOR RECORDS PERTAINING TO PATIENTS WHO ARE OR HAVE BEEN ENROLLED IN A CHEMICAL DEPENDENCY/SUBSTANCEABUSE PROGRAM, SOME INFORMATION MAY BE OMITTED. This clinical summary was aggregated from multiple sources. Caution should be exercised in using it in the provision of clinical care. This summary normalizes information from multiple sources, and as a consequence, information in this document may materially change the coding, format and clinical context of patient data. In addition, data may be omitted in some cases. CLINICAL DECISIONS SHOULD BE BASED ON THE PRIMARY CLINICAL RECORDS. [email or web address] provides no warranty or guarantee of the accuracy or completeness of information in this document.
[2025-06-13 21:24] VITALS: BP 148/70; PULSE 105; RESP 20; TEMP 36.6; O2SAT 97
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
== END 2025-06-13 21:24 | disposition home or self-care (01) ==
PROVIDERS: Emergency Provider Emergency Medicine; Referring Provider Emergency Medicine; Visit Provider Emergency Medicine
DX: S52.692A Other fracture of lower end of left ulna, initial encounter for closed fracture (principal); S40.212A Abrasion of left shoulder, initial encounter; V47.5XXA Car driver injured in collision with fixed or stationary object in traffic accident, initial encounter; W22.11XA Striking against or struck by driver side automobile airbag, initial encounter; F17.210 Nicotine dependence, cigarettes, uncomplicated
CPT/HCPCS: 29125; 73090; 99284